=== PATIENT | female | born 1945 | race Caucasian/White ===

== ENCOUNTER 2019-06-15 17:27 | Observation (INO) | payer OTHER, BC ==
[2019-06-15] MEDS ORDERED: PANTOPRAZOLE 40 MG INJ ONE (17:48)
[2019-06-15] MEDS ORDERED: ONDANSETRON 4 MG/2 ML VIAL ONE ×2 (17:48→20:17)
[2019-06-15 18:17] LABS: Absolute Lymphocytes (CBC) 1.5 K/uL (0.7-4.9); Basophils % 0.5 % (0-1.3); Hematocrit 34.8 % (36.0-45.0); Lymphocytes % 12.4 % (15.3-44.8); MPV 9.2 fL (7.6-11.3); RBC Red Blood Cell Count 4.44 M/uL (3.86-4.86)
--- NOTE | 2019-06-15 18:17 | RAD REPORT ---
EXAM DESCRIPTION: RAD - Chest Single View - 06/15/2019 6:11 pm CLINICAL HISTORY: upper abdomen/epigastric pain Chest pain. COMPARISON: Chest Single View dated 06/10/2019; Chest Single View dated 03/13/2017; Chest Single View dated 01/20/2017; Chest Single View dated 10/24/2016 FINDINGS: Portable technique limits examination quality. The lungs are grossly clear. The heart is upper limit of normal in size. No displaced fractures. IMPRESSION: No acute intrathoracic process suspected.
[2019-06-15 18:18] LABS: Protime INR 0.95
[2019-06-15 18:35] LABS: ALT/SGPT 64 U/L (12-78); AST/SGOT 54 U/L (15-37); Albumin 3.4 g/dL (3.4-5.0); Alkaline Phosphatase 130 U/L (45-117); BUN Blood Urea Nitrogen 14 mg/dL (7-18); Bicarbonate 22 mmol/L (21-32); Bilirubin Direct 0.1 mg/dL (0-0.2); Bilirubin Total 0.3 mg/dL (0.2-1.0); Glucose Level 103 mg/dL (74-106); Lipase 167 U/L (73-393); Magnesium 2.2 mg/dL (1.8-2.4); NT PRO-BNP 84 pg/mL (<125); Potassium 4.2 mmol/L (3.5-5.1); Protein, Total 7.7 g/dL (6.4-8.2); Sodium Level 134 mmol/L (136-145); Troponin (Emerg Dept Use Only) < 0.02 ng/mL (0.0-0.045)
--- NOTE | 2019-06-15 19:50 | RAD REPORT ---
EXAM DESCRIPTION: CTAbdomen Pelvis W Contrast - 06/15/2019 7:37 pm CLINICAL HISTORY: Abdominal pain. ABD PAIN COMPARISON: Abdomen Pelvis W Contrast dated 01/20/2017 TECHNIQUE: Biphasic CT imaging of the abdomen and pelvis was performed with 100 ml non-ionic IV cont rast. All CT scans are performed using dose optimization technique as appropriate and may include automated exposure control or mA/KV adjustment according to patient size. FINDINGS: The lung bases are clear.Moderate axial hiatal hernia. Diffuse fatty liver is evident. The spleen, pancreas, adrenal glands and kidneys are within normal li mits. No bowel obstruction, free air, free fluid or abscess. The appendix is not identified as a discrete s tructure, however, no secondary findings of appendicitis are identified. Significant fecal retention in the colon. No evidence of significant lymphadenopathy. Moderate lumbar degenerative changes. IMPRESSION: Prominent fecal retention.
[2019-06-15] MEDS ORDERED: NA CHLORIDE 0.9% 500 ML ONE (20:12)
[2019-06-15] MEDS ORDERED: MAGNESIUM CITRATE 300 ML BOT ONE (20:53)
[2019-06-15] MEDS ORDERED: PROMETHAZINE 25 MG/ML VIAL ONE (21:03)
--- NOTE | 2019-06-15 21:46 | EDPHYS ---
Physician Documentation [facility] Name: Linda Lorenzana Age: 73 yrs Sex: Female : 1945 Arrival Date: 06/15/2019 Time: 17:33 Bed 8 Private MD: ED Physician Omer Morrison HPI: 06/15 17:50 This 73 yrs old Female presents to ER via EMS with complaints of Abdominal cp Pain. 17:50 The patient presents with abdominal pain in the epigastric area, in the upper abdomen. cp 17:50 Onset: The symptoms/episode began/occurred yesterday. cp 17:50 The symptoms radiate to chest. Associated signs and symptoms: Pertinent positives: cp nausea and vomiting, anorexia, constipation, Pertinent negatives: blood in stools, diarrhea, fever, headache, vomiting blood. Severity of pain: in the emergency department the pain is unchanged despite home interventions. Historical: - Allergies: 17:36 Bactrim; aj1 17:36 Levaquin; aj1 17:36 PENICILLINS; aj1 17:36 Sulfa (Sulfonamide Antibiotics); aj1 - Home Meds: 17:36 Diovan 320 mg Oral tab 1 tab once daily [Active]; hydrocodone-acetaminophen 7.5-325 mg aj1 Oral tab [Active]; Phenergan Oral 25 mg every 8 hours [Active]; Premarin 0.3 mg Oral tab 1 tab once daily [Active]; Prevacid 30 mg Oral cpDR [Active]; promethagen supository-25 mg [Active]; Protonix 40 mg Oral TbEC 1 tab once daily [Active]; Vesicare 10 mg Oral tab 1 tab once daily [Active]; Zofran (as hydrochloride) 4 mg Oral tab 1 tabs [Active]; - PMHx: 17:36 Anxiety; Hypertension; IBM; Inclusion Body Myositis; muscular degeneration; Ulcers; aj1 - Immunization history:: Flu vaccine is not up to date. - Social history:: Smoking status: Patient/guardian denies using tobacco. - Ebola Screening: : Patient denies travel to an Ebola-affected area in the 21 days before illness onset. ROS: 17:55 Constitutional: Positive for poor PO intake, Negative for body aches, chills, fever. cp 17:55 Eyes: Negative for injury, pain, redness, and discharge. cp 17:55 ENT: Negative for drainage from ear(s), ear pain, sore throat, difficulty swallowing, difficulty handling secretions. 17:55 Cardiovascular: Positive for chest pain, Negative for palpitations. 17:55 Respiratory: Negative for cough, shortness of breath, wheezing. 17:55 Abdomen/GI: Positive for abdominal pain, nausea and vomiting, constipation, anorexia, Negative for diarrhea, dysphagia, black/tarry stool, rectal bleeding. 17:55 Back: Negative for radiated pain. 17:55 : Negative for urinary symptoms. 17:55 Neuro: Negative for altered mental status, headache, syncope, weakness. 17:55 All other systems are negative. Exam: 18:02 Constitutional: The patient appears in no acute distress, alert, awake, cp non-diaphoretic, non-toxic, well developed, well nourished, uncomfortable. 18:02 Head/Face: Normocephalic, atraumatic. cp 18:02 Eyes: Periorbital structures: appear normal, Conjunctiva: normal, no exudate, no injection, Sclera: no appreciated abnormality, Lids and lashes: appear normal, bilaterally. 18:02 ENT: External ear(s): are unremarkable, Nose: is normal, Mouth: Lips: moist, Oral mucosa: dry, Posterior pharynx: is normal, airway is patent, no erythema, no exudate. 18:02 Neck: ROM/movement: is normal, is supple, without pain, no range of motions limitations, no nuchal rigidity. 18:02 Chest/axilla: Inspection: normal, Palpation: is normal, no crepitus, no tenderness. 18:02 Cardiovascular: Rate: tachycardic, Rhythm: regular, Edema: is not appreciated, JVD: is not appreciated. 18:02 Respiratory: the patient does not display signs of respiratory distress, Respirations: normal, no use of accessory muscles, no retractions, no splinting, no tachypnea, Breath sounds: are clear throughout, no decreased breath sounds, no stridor, no wheezing. 18:02 Abdomen/GI: Inspection: abdomen appears normal, Bowel sounds: active, all quadrants, Palpation: soft, in all quadrants, mild abdominal tenderness, in the epigastric area and left upper quadrant, rebound tenderness, is not appreciated, involuntary guarding, is not appreciated. 18:02 Back: CVA tenderness, is absent. 18:02 Neuro: Orientation: to person, place \T\ time. Mentation: is normal, Motor: moves all fours, Sensation: no obvious gross deficits. 19:15 ECG was reviewed by the Attending Physician. cp 22:00 ECG was reviewed by the Attending Physician. cp Vital Signs: 17:36 BP 150 / 67; Pulse 120; Resp 18; Temp 98.3; Pulse Ox 99% on R/A; Height 5 ft. 7 in. aj1 (170.18 cm) (R); Pain 5/10; 20:15 BP 150 / 69; Pulse 104; Resp 20; Pulse Ox 98% on R/A; mt 20:32 BP 158 / 77; Pulse 98; Resp 18; Pulse Ox 100% ; ea 21:00 BP 140 / 68; Pulse 98; Resp 18; Pulse Ox 99% ; ea 23:15 BP 145 / 70; Pulse 100; Resp 18; Temp 98; Pulse Ox 97% ; ea MDM: 17:40 Patient medically screened. cp 18:00 Differential diagnosis: bowel obstruction, cholecystitis, Cholelithiasis, gastritis, cp gastroesophageal reflux disease, non-specific abd pain, pancreatitis, Peptic Ulcer Disease, Perf. Duodenal Ulcer, Perf. Gastric Ulcer. 20:20 Data reviewed: vital signs, nurses notes, old medical records, lab test result(s), EKG, cp radiologic studies, CT scan, I have discussed the patient's presentation/case with the attending Emergency Department Physician;. 20:20 Response to treatment: the patient's symptoms have mildly improved after treatment. cp 20:30 Physician consultation: Romulo Mulligan MD was called at 20:31, left message on voicemail.cp 21:02 Physician consultation: Romulo Mulligan MD was called at 21:03, left message on voicemail.cp 21:41 ED course: VSS. Patient continues to have nausea and is intolerant of po liquids. Nurse cp observed patient vomit after attempting to drink magnesium citrate. Will admit for intractable vomiting to DR Mulligan and consult DR Denis. 21:55 Physician consultation: Romulo Mulligan MD was contacted at 21:50, regarding admission, cp to the telemetry unit. would like consultation with Dr. Denis for evaluation if available. 06/15 17:43 Order name: Basic Metabolic Panel; Complete Time: 18:48 cp 06/15 19:52 Interpretation: Normal except: NA 134; CRE 0.36. cp 06/15 17:43 Order name: CBC with Diff; Complete Time: 18:48 cp 06/15 19:53 Interpretation: Normal except: WBC 11.8; HGB 11.1; HCT 34.8; MCV 78.2; MCH 25.1; PLT cp 535; RDW 19.3; MONY% 78.9; LYM% 12.4; NEUT A 9.3. 06/15 17:43 Order name: LFT's; Complete Time: 18:48 cp 06/15 19:53 Interpretation: Normal except: AST 54; ALK 130; GLOB 4.3; A/G 0.8. cp 06/15 17:43 Order name: Magnesium; Complete Time: 18:48 cp 06/15 17:43 Order name: NT PRO-BNP; Complete Time: 18:48 cp 06/15 17:43 Order name: PT-INR; Complete Time: 18:48 cp 06/15 17:43 Order name: Troponin (emerg Dept Use Only); Complete Time: 18:48 cp 06/15 17:43 Order name: XRAY Chest (1 view); Complete Time: 18:48 cp 06/15 17:43 Order name: Lipase; Complete Time: 18:48 cp 06/15 22:48 Order name: Basic Metabolic Panel [facility] 06/15 22:48 Order name: Basic Metabolic Panel [facility] 06/15 22:48 Order name: Lipase [facility] 06/15 22:48 Order name: Lipase [facility] 06/15 22:49 Order name: Troponin I [facility] 06/15 17:43 Order name: EKG; Complete Time: 17:45 cp 06/15 17:43 Order name: Cardiac monitoring; Complete Time: 17:46 cp 06/15 17:43 Order name: EKG - Nurse/Tech; Complete Time: 19:43 cp 06/15 18:50 Order name: CT Abd/Pelvis - IV Contrast Only: upper abdomen/epigastric pain; Complete cp Time: 19:52 06/15 21:41 Order name: EKG; Complete Time: 21:41 cp 06/15 22:49 Order name: CONS Physician Consult [facility] 06/15 22:49 Order name: NPO [facility] 06/15 22:49 Order name: Abdomen Exam Limited [facility] 06/15 17:43 Order name: IV Saline Lock; Complete Time: 17:59 cp 06/15 17:43 Order name: Labs collected and sent; Complete Time: 17:59 cp 06/15 17:43 Order name: O2 Per Protocol; Complete Time: 17:46 cp 06/15 17:43 Order name: O2 Sat Monitoring; Complete Time: 17:46 cp 06/15 20:32 Order name: Misc. Order: soap markus enema; Complete Time: 23:19 cp 06/15 21:41 Order name: EKG - Nurse/Tech; Complete Time: 22:43 cp EC:15 Rate is 106 beats/min. Rhythm is regular. NJ interval is normal. QRS interval is cp normal. QT interval is normal. T waves are Inverted in leads aVL, aVR. Interpreted by me. Reviewed by me. 22:00 Rate is 116 beats/min. Rhythm is regular. NJ interval is normal. QRS interval is cp normal. QT interval is normal. T waves are Inverted in leads aVL, aVR. Interpreted by me. Reviewed by me. Administered Medications: 17:59 Drug: Zofran 4 mg Route: IVP; Site: right antecubital; aj1 19:00 Follow up: Response: No adverse reaction ea 18:00 Drug: ProTONIX 40 mg Route: IVP; Site: right antecubital; aj1 19:00 Follow up: Response: No adverse reaction ea 20:21 Drug: NS 0.9% 500 ml Route: IV; Rate: 500 ml/hr; Site: right antecubital; ea 22:43 Follow up: Response: No adverse reaction; IV Status: Completed infusion; IV Intake: ea 500ml 20:32 Drug: Zofran 4 mg Route: IVP; Site: right antecubital; ea 21:00 Follow up: Response: No adverse reaction ea 21:15 Drug: Phenergan 25 mg Route: IVP; Site: right antecubital; ea 22:43 Follow up: Response: No adverse reaction ea 23:18 Drug: morphine 2 mg Route: IVP; Site: right antecubital; ea 23:18 Follow up: Response: RASS: Alert and Calm (0) ea 23:30 Follow up: Response: No adverse reaction; RASS: Alert and Calm (0) ea 23:19 Not Given (Other Intervention Used): Magnesium Citrate Liquid 300 ml PO once ea Disposition: 06/16 07:11 Co-signature as Attending Physician, Omer Morrison MD I agree with the assessment and [facility] plan of care. Disposition: 06/15/19 21:44 Hospitalization ordered by Romulo Mulligan for Observation. Preliminary diagnosis are Nausea and vomiting - intractable, Epigastric pain, Chest pain, unspecified. - Bed requested for Telemetry/MedSurg (observation). - Status is Observation. ea - Condition is Stable. - Problem is new. - Symptoms have improved. UTI on Admission? No Signatures: Dispatcher [employer] EDRachell Fisher RN RN ajIliana Valdez RN Omer Gay MD MD cha Page, Corey, PA PA cp Antunez, Elena, RN RN ea Corrections: (The following items were deleted from the chart) 06/15 22:54 21:44 Hospitalization Ordered by Romulo Mulligan MD for Observation. Preliminary diagnosis is Nausea and vomiting - intractable; Epigastric pain; Chest pain, unspecified. Bed requested for Telemetry/MedSurg (observation). Status is Observation. Condition is Stable. Problem is new. Symptoms have improved. UTI on Admission? No. cp 23:38 22:54 06/15/2019 21:44 Hospitalization Ordered by Romulo Mulligan MD for Observation. ea Preliminary diagnosis is Nausea and vomiting - intractable; Epigastric pain; Chest pain, unspecified. Bed requested for Telemetry/MedSurg (observation). Status is Observation. Condition is Stable. Problem is new. Symptoms have improved. UTI on Admission? No. mw
--- NOTE | 2019-06-15 21:46 | ER ---
Nurse's Notes [facility] Name: Linda Lorenzana Age: 73 yrs Sex: Female : 1945 Arrival Date: 06/15/2019 Time: 17:33 Bed 8 Private MD: Diagnosis: Nausea and vomiting-intractable;Epigastric pain;Chest pain, unspecified Presentation: 06/15 17:33 Presenting complaint: Patient states: RUQ, LUQ, epigastric pain, and vomiting that aj1 started yesterday. Patient reports that she was recently admitted to the hospital for the some type of complaint and was discharged on Saturday. Denies fever. Transition of care: patient was not received from another setting of care. Onset of symptoms was June 13, 2019. Risk Assessment: Do you want to hurt yourself or someone else? Patient reports no desire to harm self or others. Initial Sepsis Screen: Does the patient meet any 2 criteria? HR > 90 bpm. No. Patient's initial sepsis screen is negative. Does the patient have a suspected source of infection? Yes: Acute abdominal pain. Care prior to arrival: None. 17:33 Method Of Arrival: EMS: [facility] aj 17:33 Acuity: DELFINO 2 aj1 Triage Assessment: 17:36 General: Appears uncomfortable, Behavior is calm, cooperative, appropriate for age. aj1 Pain: Complains of pain in epigastric area, right upper quadrant and left upper quadrant Pain does not radiate. Pain currently is 6 out of 10 on a pain scale. Neuro: GI: Reports upper abdominal pain, nausea, vomiting. Historical: - Allergies: 17:36 Bactrim; aj1 17:36 Levaquin; aj1 17:36 PENICILLINS; aj1 17:36 Sulfa (Sulfonamide Antibiotics); aj1 - Home Meds: 17:36 Diovan 320 mg Oral tab 1 tab once daily [Active]; hydrocodone-acetaminophen 7.5-325 mg aj1 Oral tab [Active]; Phenergan Oral 25 mg every 8 hours [Active]; Premarin 0.3 mg Oral tab 1 tab once daily [Active]; Prevacid 30 mg Oral cpDR [Active]; promethagen supository-25 mg [Active]; Protonix 40 mg Oral TbEC 1 tab once daily [Active]; Vesicare 10 mg Oral tab 1 tab once daily [Active]; Zofran (as hydrochloride) 4 mg Oral tab 1 tabs [Active]; - PMHx: 17:36 Anxiety; Hypertension; IBM; Inclusion Body Myositis; muscular degeneration; Ulcers; aj1 - Immunization history:: Flu vaccine is not up to date. - Social history:: Smoking status: Patient/guardian denies using tobacco. - Ebola Screening: : Patient denies travel to an Ebola-affected area in the 21 days before illness onset. Screenin:44 Abuse screen: Denies threats or abuse. Denies injuries from another. Nutritional aj1 screening: No deficits noted. Tuberculosis screening: No symptoms or risk factors identified. 23:15 Fall Risk Ambulatory Aid- None/Bed Rest/Nurse Assist (0 pts). ak1 Assessment: 17:44 General: Appears uncomfortable, Behavior is calm, cooperative, appropriate for age. aj1 Pain: Complains of pain in left upper quadrant and right upper quadrant and epigastric area Pain does not radiate. Pain currently is 5 out of 10 on a pain scale. Pain began 2-3 days ago. Is intermittent. Neuro: Level of Consciousness is awake, alert, obeys commands, Oriented to person, place, time, situation. Cardiovascular: Patient's skin is warm and dry. Respiratory: Airway is patent Respiratory effort is even, unlabored, Respiratory pattern is regular, symmetrical. GI: Abdomen is round distended, Bowel sounds present X 4 quads. Abd is soft X 4 quads Abdomen is tender to palpation X 4 quads. Reports upper abdominal pain, nausea, vomiting, Patient currently denies diarrhea. : No signs and/or symptoms were reported regarding the genitourinary system. EENT: No signs and/or symptoms were reported regarding the EENT system. Derm: No signs and/or symptoms reported regarding the dermatologic system. Skin is pink, warm \T\ dry. normal. Musculoskeletal: Range of motion: WNL for patient, patient has history of muscular degeneration and is bed bound. 19:00 General: Appears uncomfortable, Behavior is calm, cooperative, appropriate for age. ea Pain: Complains of pain in left upper quadrant and right upper quadrant. Neuro: Level of Consciousness is awake, alert, obeys commands, Oriented to person, place, time, situation. Cardiovascular: Patient's skin is warm and dry. Respiratory: Airway is patent Respiratory effort is even, unlabored, Respiratory pattern is regular, symmetrical. Derm: Skin is pink, warm \T\ dry. 20:35 Reassessment: Dione Dai Daughter [phone]. ea 23:35 Reassessment: Patient and/or family updated on plan of care and expected duration. Pain ea level reassessed. Patient is alert, oriented x 3, equal unlabored respirations, skin warm/dry/pink. Pt admitted to hospital, pt taken via stretcher per tech. Respirations even and unlabored, chest expansions even and symmetrical. No s/s of pain or discomfort noted at this time. Vital Signs: 17:36 BP 150 / 67; Pulse 120; Resp 18; Temp 98.3; Pulse Ox 99% on R/A; Height 5 ft. 7 in. aj1 (170.18 cm) (R); Pain 5/10; 20:15 BP 150 / 69; Pulse 104; Resp 20; Pulse Ox 98% on R/A; mt 20:32 BP 158 / 77; Pulse 98; Resp 18; Pulse Ox 100% ; ea 21:00 BP 140 / 68; Pulse 98; Resp 18; Pulse Ox 99% ; ea 23:15 BP 145 / 70; Pulse 100; Resp 18; Temp 98; Pulse Ox 97% ; ea ED Course: 17:33 Patient arrived in ED. aj1 17:35 Triage completed. aj1 17:36 Arm band placed on. aj1 17:37 Omer White PA is PHCP. cp 17:37 Richard Fontanez MD is Attending Physician. cp 17:40 Rachell Palencia, RN is Primary Nurse. aj1 17:44 Patient has correct armband on for positive identification. Bed in low position. Call aj1 light in reach. Side rails up X 1. 17:44 No provider procedures requiring assistance completed. aj1 17:55 Inserted saline lock: 20 gauge in right antecubital area, using aseptic technique. aj1 Blood collected. 18:11 XRAY Chest (1 view) In Process Unspecified. EDMS 19:00 Radiology exam delayed due to patient getting changed at this time. nj 19:[address] via stretcher. sw 19:33 CT completed. Patient tolerated procedure well. Patient moved back from CT. sw 19:37 CT Abd/Pelvis - IV Contrast Only: upper abdomen/epigastric pain In Process Unspecified. EDMS 21:29 Omer Morrison MD is Attending Physician. cp 21:43 Romulo Mulligan MD is Hospitalizing Provider. cp 23:15 Patient admitted, IV remains in place. ak1 Administered Medications: 17:59 Drug: Zofran 4 mg Route: IVP; Site: right antecubital; aj1 19:00 Follow up: Response: No adverse reaction ea 18:00 Drug: ProTONIX 40 mg Route: IVP; Site: right antecubital; aj1 19:00 Follow up: Response: No adverse reaction ea 20:21 Drug: NS 0.9% 500 ml Route: IV; Rate: 500 ml/hr; Site: right antecubital; ea 22:43 Follow up: Response: No adverse reaction; IV Status: Completed infusion; IV Intake: ea 500ml 20:32 Drug: Zofran 4 mg Route: IVP; Site: right antecubital; ea 21:00 Follow up: Response: No adverse reaction ea 21:15 Drug: Phenergan 25 mg Route: IVP; Site: right antecubital; ea 22:43 Follow up: Response: No adverse reaction ea 23:18 Drug: morphine 2 mg Route: IVP; Site: right antecubital; ea 23:18 Follow up: Response: RASS: Alert and Calm (0) ea 23:30 Follow up: Response: No adverse reaction; RASS: Alert and Calm (0) ea 23:19 Not Given (Other Intervention Used): Magnesium Citrate Liquid 300 ml PO once ea Intake: 22:43 IV: 500ml; Total: 500ml. ea Outcome: 21:44 Decision to Hospitalize by Provider. cp 23:15 Admitted to Med/surg accompanied by tech, via stretcher, room 406, with chart, Report ak1 called to Sirena 23:15 Condition: stable 23:15 Instructed on the need for admit. 23:38 Patient left the ED. ea Signatures: Dispatcher [employer] EDMS Rachell Palencia RN RN [email or web address] Cecelia Lam Amber, RN RN ak1 Chasidy Castellanos Corey, PA PA cp Bryan, Elpidio Blount, [facility] Delores Pinto RN RN ea Corrections: (The following items were deleted from the chart) 19:00 18:54 Patient moved to [place] sj nj
[2019-06-15] MEDS ORDERED: ONDANSETRON 4 MG/2 ML VIAL IV PRN (22:42)
[2019-06-15] MEDS ORDERED: MORPHINE 2 MG/ML SYR IM PRN (22:44)
[2019-06-15] MEDS ORDERED: ASPIRIN 600 MG/SUPP PR ONE (22:50)
[2019-06-16] MEDS: D5 0.45 NS 1,000 ML IV SCH ×2 (00:30→12:20)
[2019-06-16 01:44] VITALS: BMI 29.7
[2019-06-16] MEDS: PROMETHAZINE 25 MG/ML VIAL IV PRN ×2 (02:47→10:44)
[2019-06-16] MEDS: MORPHINE 2 MG/ML SYR IV PRN (02:50)
[2019-06-16 04:30] LABS: Absolute Lymphocytes (CBC) 1.8 K/uL (0.7-4.9); Basophils % 0.4 % (0-1.3); Hematocrit 31.8 % (36.0-45.0); MPV 9.4 fL (7.6-11.3); RBC Red Blood Cell Count 4.01 M/uL (3.86-4.86)
[2019-06-16 04:53] LABS: ALT/SGPT 52 U/L (12-78); AST/SGOT 44 U/L (15-37); Alkaline Phosphatase 113 U/L (45-117); BUN Blood Urea Nitrogen 12 mg/dL (7-18); Bicarbonate 23 mmol/L (21-32); Bilirubin Direct < 0.1 mg/dL (0-0.2); Bilirubin Total 0.2 mg/dL (0.2-1.0); Glucose Level 120 mg/dL (74-106); Lipase 86 U/L (73-393); Potassium 3.7 mmol/L (3.5-5.1); Protein, Total 6.7 g/dL (6.4-8.2); Sodium Level 134 mmol/L (136-145)
--- NOTE | 2019-06-16 07:26 | EKG ---
Test Date: 2019-06-15 Test Time: 19:11:53 Clinical Implementation Specialist: MEASUREMENT RESULTS: Intervals: Rate: 106 NE: 150 QRSD: 80 QT: 332 QTc: 441 [place]: P: 96 NE: 150 QRS: 251 T: 78 INTERPRETIVE STATEMENTS: Sinus tachycardia Right superior axis deviation Anteroseptal infarct, age undetermined Pulmonary disease pattern Abnormal ECG Compared to ECG 06/11/2019 09:16:58 Right superior axis now present Left-axis deviation no longer present Myocardial infarct finding still present Electronically Signed On 06-16-19 07:26:00 CDT by Mayank Orosco
--- NOTE | 2019-06-16 07:26 | EKG ---
Test Date: 2019-06-15 Test Time: 21:51:54 Rn Intake: WALE MEASUREMENT RESULTS: Intervals: Rate: 119 CT: 150 QRSD: 80 QT: 310 QTc: 436 [place]: P: 82 CT: 150 QRS: -65 T: 100 INTERPRETIVE STATEMENTS: Sinus tachycardia Left axis deviation Inferior infarct, age undetermined Anteroseptal infarct, age undetermined Abnormal ECG Compared to ECG 06/15/2019 19:11:53 Left-axis deviation now present Right superior axis no longer present Myocardial infarct finding still present Electronically Signed On 06-16-19 07:25:23 CDT by Mayank Orosco
--- NOTE | 2019-06-16 09:19 | RAD REPORT ---
EXAM DESCRIPTION: US - Abdomen Exam Limited - 06/16/2019 9:10 am CLINICAL HISTORY: epigastric/upper abdomen pain COMPARISON: Abdomen Exam Limited dated 03/13/2017 FINDINGS: The gallbladder demonstrates no gallstones. No pericholecystic fluid or gallbladder wall t hickening. The common bile duct is normal measuring 2 mm. The liver demonstrates no findings of intrahepatic biliary dilatation. IMPRESSION: Unremarkable examination.
[2019-06-16] MEDS: FLEET ENEMA ADULT PR SCH ×2 (10:11→20:07)
[2019-06-16] MEDS ORDERED: LACTULOSE 20 GM/30 ML UCUP PO PRN (10:12)
--- NOTE | 2019-06-16 12:21 | EKG ---
Test Date: 2019-06-15 Test Time: 21:52:52 Long Distance Operator: WALE MEASUREMENT RESULTS: Intervals: Rate: 116 AL: 150 QRSD: 76 QT: 312 QTc: 433 [place]: P: 86 AL: 150 QRS: -65 T: 104 INTERPRETIVE STATEMENTS: Sinus tachycardia Left axis deviation Inferior infarct, age undetermined Anteroseptal infarct, age undetermined Abnormal ECG Compared to ECG 06/15/2019 21:51:54 No significant changes Electronically Signed On 06-16-19 12:20:27 CDT by Mayank Orosco
--- NOTE | 2019-06-16 20:59 | HP ---
Date of Admission: 06/15/2019 History Of Present Illness: The patient is a 73-year-old female, who was recently discharged after b eing evaluated for chest pain, just comes back with a complaint of epigastric abdominal pain along wi th nausea and vomiting, which is intractable. She could not keep even fluids in her stomach. We rosetta t ahead and admitted her back into the hospital. The patient has had no fever, no chills, no diarrhe a or constipation. She voiced no other complaints. Review of Systems: Gastrointestinal: As above. Cardiovascular: No complaints. Genitourinary: No complaints. Skeletomuscular: No complaints. Respiratory: No complaints. Neurological: No complaints. Past Medical History: Kindly look at her just recent admit and discharge notes. Social History: Kindly look at her just recent admit and discharge notes. Family History: Kindly look at her just recent admit and discharge notes. Medications: Kindly look at her just recent admit and discharge notes. Allergies: KINDLY LOOK AT HER JUST RECENT ADMIT AND DISCHARGE NOTES. Physical Examination: Vital Signs: Blood pressure 130/60, pulse 90, temperature 97.4. Heart: Regular rate and rhythm. Chest: Clear to auscultation. Abdomen: Soft, nontender. No rigidity. No rebound. Bowel sounds are normoactive. Extremities: No edema. No cyanosis. Peripheral pulses are felt. Neurologic: Alert, oriented, nonfocal. Grossly intact. Diagnostic Data: Abdominal ultrasound, no acute pathology. Abdominal and pelvic CT, had some fecal retention. Chest x-ray, no acute pathology. EKG; sinus tachycardia, rate 119, left axis deviation, inferior Q-waves and anteroseptal Q-waves. CBC; white cell count 8.4, hemoglobin 10.5, hematocrit 31.8, platelets 455. Chemistry; sodium 134, B UN 12, creatinine 0.31, lipase 86. Assessment/plan: Intractable nausea and vomiting with epigastric abdominal pain. The patient is mellisa leela readmitted. I have asked Dr. Denis, Gastroenterology, to see her. Meanwhile, we will put her on IV fluids and Phenergan IV. We will continue home medicines for chronic medical illnesses. Look orders for details. MFS/MODL Voice ID: [id number]
[2019-06-17] MEDS: D5 0.45 NS 1,000 ML IV SCH ×2 (01:02→01:40)
[2019-06-17] MEDS: MORPHINE 2 MG/ML SYR IV PRN ×2 (01:02→06:08)
[2019-06-17] MEDS ORDERED: PANTOPRAZOLE 40MG TABLET PO SCH (06:30)
[2019-06-17 08:21] VITALS: O2SAT 95
[2019-06-17] MEDS ORDERED: PARoxetine HCl 10 MG TAB PO SCH (09:00)
[2019-06-17] MEDS ORDERED: VALSARTAN 160 MG TAB PO SCH (09:00)
[2019-06-17] MEDS ORDERED: AMLODIPINE 10 MG TAB PO SCH (09:00)
[2019-06-17] MEDS: FLEET ENEMA ADULT PR SCH (09:00)
[2019-06-17 12:12] VITALS: BP 139/69; TEMP 96.8
== END 2019-06-17 13:29 | disposition home or self-care (01) ==
LOC: ER 17:27 → ERHOLD 22:56 → 4TH 23:20
PROVIDERS: ADMIT Internal Medicine; ATTEND Internal Medicine
DX: R10.13 Epigastric pain (principal); R11.2 Nausea with vomiting, unspecified; Z88.0 Allergy status to penicillin; Z88.6 Allergy status to analgesic agent; Z88.1 Allergy status to other antibiotic agents
CPT/HCPCS: 96361; 93005 ×3; 85025 ×2; 80048 ×2; 36415; 83735; 85610; 80076 ×2; 84484 ×3; 83690 ×2; 83880; 74177; 71045; 76705; 96375; 96374; 99285; Q9967; J2550 ×3; C9113; J2270 ×4; J2405 ×2; G0378 ×2

== ENCOUNTER 2021-11-28 15:56 | Inpatient (IN) | payer OTHER ==
[2021-11-28] MEDS ORDERED: NA CHLORIDE 0.9% 1,000 ML ONE (16:21)
[2021-11-28 16:29] LABS: Absolute Lymphocytes (CBC) 0.4 K/uL (0.7-4.9); Hematocrit 39.3 % (36.0-45.0); Lymphocytes % 2.6 % (15.3-44.8); MPV 9.5 fL (7.6-11.3)
[2021-11-28 16:32] LABS: Protime INR 0.97
[2021-11-28 16:37] LABS: Urine Blood Trace-intact (Negative); Urine Glucose Negative (Negative); Urine Protein Trace (Negative)
[2021-11-28 16:47] LABS: ALT/SGPT 21 U/L (12-78); AST/SGOT 18 U/L (15-37); Albumin 2.5 g/dL (3.4-5.0); Alkaline Phosphatase 99 U/L (45-117); BUN Blood Urea Nitrogen 8 mg/dL (7-18); Bicarbonate 28 mmol/L (21-32); Bilirubin Direct 0.1 mg/dL (0-0.2); Bilirubin Total 0.3 mg/dL (0.2-1.0); Glucose Level 183 mg/dL (74-106); Protein, Total 7.1 g/dL (6.4-8.2); Sodium Level 130 mmol/L (136-145)
[2021-11-28] MEDS ORDERED: METHYLPREDNISOLONE 125 MG INJ ONE (16:49)
[2021-11-28 16:51] LABS: Potassium 2.4 mmol/L (3.5-5.1)
[2021-11-28 17:06] LABS: Urine Bacteria 20-50 /HPF (<20); Urine Mucus 1+ /HPF (NONE SEEN); Urine RBC <5 /HPF (NONE SEEN)
[2021-11-28 17:42] LABS: SARS-COV-2 RT PCR POSITIVE (NEGATIVE)
--- NOTE | 2021-11-28 17:49 | RAD REPORT ---
EXAM DESCRIPTION: RAD - Chest Single View - 11/28/2021 5:04 pm CLINICAL HISTORY: Cough;Dyspnea;Fever Chest pain. COMPARISON: Chest Single View dated 06/15/2019; Chest Single View dated 06/10/2019; Chest Single View dated 03/13/2017; Chest Single View dated 01/20/2017 FINDINGS: Portable technique limits examination quality. Mild bilateral interstitial lung opacities are present, greater on the right. Most likely, this repre sents a viral infection. The heart is upper limit of normal in size. No displaced fractures.
[2021-11-28] MEDS ORDERED: NA CHLORIDE 0.9% 100 ML IV ONE (18:09)
[2021-11-28] MEDS ORDERED: CEFTRIAXONE 1000 MG/VIAL ONE (18:09)
--- NOTE | 2021-11-28 18:11 | ER ---
Nurse's Notes [facility] Name: Linda Lorenzana Age: 76 yrs Sex: Female : 1945 Arrival Date: 11/28/2021 Time: 15:56 Bed 3 Private MD: Diagnosis: Pneumonia due to SARS-associated coronavirus;UTI/ Urinary tract infection, site not specified;Altered mental status, unspecified;Hypokalemia Presentation: 11/28 15:56 Chief complaint: EMS states: outpatient XRAY shoed pneumonia today. half-way ss reports AMS that began today as well. COVID +. Coronavirus screen: Client presents with at least one sign or symptom that may indicate coronavirus-19. Initial Sepsis Screen: Does the patient meet any 2 criteria? Yes Does the patient have a suspected source of infection? Yes: Productive cough/pneumonia. Risk Assessment: Do you want to hurt yourself or someone else? Unable to obtain. Onset of symptoms is unknown. 15:56 Method Of Arrival: EMS: [facility] 15:56 Acuity: DELFINO 2 ss 16:13 Ebola Screen: Patient negative for fever greater than or equal to 101.5 degrees jg9 Fahrenheit, and additional compatible Ebola Virus Disease symptoms Patient denies exposure to infectious person. Patient denies travel to an Ebola-affected area in the 21 days before illness onset. Triage Assessment: 16:10 General: Appears in no apparent distress. Behavior is calm. Pain: Unable to use pain jg9 scale. responds to verbal stimuli with moaning/groaning. Neuro: Level of Consciousness is lethargic, awake to verbal stimuli. Historical: - Allergies: 16:00 Bactrim; ss 16:00 Levaquin; ss 16:00 PENICILLINS; ss 16:00 Sulfa (Sulfonamide Antibiotics); ss - PMHx: 16:00 Anxiety; Hypertension; IBM; Inclusion Body Myositis; muscular degeneration; Ulcers; ss - Immunization history:: unknown. - Social history:: Smoking status: unknown. - Family history:: not pertinent. - Hospitalizations: : No recent hospitalization is reported. - Unable to obtain history due to: altered mental status. Screenin:11 Abuse screen: Denies threats or abuse. Denies injuries from another. Nutritional jg9 screening: family reports change in eating habits suddenly. Tuberculosis screening: No symptoms or risk factors identified. Fall Risk Secondary diagnosis (15 points) ams. IV access (20 points). Mental Status- Overestimates/Forgets Limitations (15 pts.). Sepsis Screening:. Assessment: 17:00 Reassessment: No changes from previously documented assessment. Patient and/or family jd3 updated on plan of care and expected duration. Pain level reassessed. pt crying after provider talking to pt at bedside about plan of care. verbal reassurance given. 18:38 Reassessment: No changes from previously documented assessment. Patient and/or family jd3 updated on plan of care and expected duration. Pain level reassessed. 20:07 General: Appears in no apparent distress. Neuro: Level of Consciousness is lethargic. 5 20:07 Cardiovascular: Capillary refill < 3 seconds Patient's skin is warm and dry. sm5 Respiratory: Airway is patent Trachea midline Respiratory effort is even, unlabored. : Cooper in place. 21:47 Reassessment: No changes from previously documented assessment. 5 21:50 Reassessment: No changes from previously documented assessment. 5 Vital Signs: 15:56 BP 145 / 84; Pulse 118; Resp 24; Pulse Ox 90% on R/A; ss 16:00 BP 144 / 79; Pulse 60; Resp 17 S; Temp 98.7(TE); Pulse Ox 94% on R/A; Weight 90.72 kg; jg9 Height 5 ft. 8 in. (172.72 cm); 17:00 BP 160 / 85; Pulse 108; Resp 19 S; Pulse Ox 100% on R/A; jg9 17:15 BP 162 / 82; Pulse 101; Resp 23 S; Pulse Ox 100% on R/A; jg9 17:30 BP 168 / 85; Pulse 104; Resp 20 S; Pulse Ox 100% on R/A; jg9 17:45 BP 160 / 72; Pulse 100; Resp 20; Pulse Ox 100% on R/A; jg9 18:00 BP 169 / 77; Pulse 105; Resp 20 S; Pulse Ox 100% on R/A; jg9 18:15 BP 161 / 88; Pulse 100; Resp 23 S; Pulse Ox 100% on R/A; jg9 21:50 BP 168 / 91; Pulse 102; Resp 22; Pulse Ox 100% ; sm5 16:00 Body Mass Index 30.41 (90.72 kg, 172.72 cm) j9 ED Course: 15:56 Patient arrived in ED. ss 16:00 Richard Fontanez MD is Attending Physician. rn 16:00 Triage completed. ss 16:01 Arm band placed on right wrist. ss 16:09 Elina Humphries, ELI is Primary Nurse. jg9 16:12 Maintain EMS IV. Site clean \T\ dry. Gauge \T\ site: 20g r wrist. Flushed right saline lock.jg 9 16:14 Patient has correct armband on for positive identification. Bed in low position. Call jg9 light in reach. Side rails up X 1. 17:00 Pt visited by daughter. jg9 17:05 Chest Single View XRAY In Process Unspecified. EDMS 17:20 Inserted saline lock: 22 gauge in right hand, using aseptic technique. jg9 17:30 Urine Culture Sent. jg9 18:02 Prince Roberto MD is Hospitalizing Provider. rn 21:51 No provider procedures requiring assistance completed. Patient admitted, IV remains in [address] Administered Medications: 16:34 Drug: NS 0.9% 1000 ml Route: IV; Rate: 1000 ml; Site: right wrist; j9 18:51 Follow up: IV Status: Completed infusion; IV Intake: 1000ml j9 17:24 Drug: SOLU-Medrol (methylPrednisoLONE) 125 mg Route: IVP; Site: right wrist; jg9 18:05 Follow up: Response: No adverse reaction j9 18:17 Drug: Rocephin (cefTRIAXone) 1 grams Route: IV; Rate: calculated rate; Site: right hand;jg9 18:50 Follow up: IV Status: Completed infusion; IV Intake: 100ml j9 21:43 Drug: Potassium Chloride 20 mEq Route: IV; Rate: calculated rate; Site: right hand; [facility] Intake: 18:50 IV: 100ml; Total: 100ml. j9 18:51 IV: 1000ml; Total: 1100ml. jg9 Outcome: 18:03 Decision to Hospitalize by Provider. rn 22:26 Patient left the ED. tw5 22:26 Admitted to Tele accompanied by tech, via stretcher, with chart. [facility] 22:26 Condition: stable 22:26 Instructed on the need for admit. Signatures: Dispatcher [employer] Richard Velázquez MD MD rn Smirch, Shelby, RN RN ss Davies, Jonathon, RN RN jd3 Wood, Tiffany 5 Quynh Fiore RN RN sm5 Elina Humphries RN RN jg9 Corrections: (The following items were deleted from the chart) 18:35 17:00 Reassessment: Patient appears in no apparent distress at this time. No changes ke1 from previously documented assessment. Patient and/or family updated on plan of care and expected duration. Pain level reassessed. jg9 21:49 20:07 Neuro: Level of Consciousness is sm5 sm5 21:50 21:48 Cardiovascular: Capillary refill < 3 seconds Patient's skin is warm and dry. sm5 sm5 21:50 21:48 Respiratory: Airway is patent Trachea midline Respiratory effort is even, sm5 unlabored, sm5 21:50 21:48 : Cooper in place sm5 sm5
--- NOTE | 2021-11-28 18:11 | EDPHYS ---
Physician Documentation [facility] Name: Linda Lorenzana Age: 76 yrs Sex: Female : 1945 Arrival Date: 11/28/2021 Time: 15:56 Bed 3 Private MD: ED Physician Richard Fontanez HPI: 11/28 16:47 This 76 yrs old Female presents to ER via EMS with complaints of Altered Mental Status. rn 16:47 The patient presents with decreased responsiveness. Onset: The symptoms/episode rn began/occurred at an unknown time. Possible causes: unknown. Associated signs and symptoms: Pertinent positives: confusion, Pertinent negatives: abdominal pain, vomiting. Current symptoms: In the emergency department the patient's symptoms are unchanged from the initial presentation. It is unknown whether or not the patient has had similar symptoms in the past. The patient has not recently seen a physician. EMS reports assisted noticed decreased level of consciousness, patient is Covid positive, unknown onset, estimate about a week, x-ray at assisted showed pneumonia. Oxygen saturation 90%.. Historical: - Allergies: 16:00 Bactrim; ss 16:00 Levaquin; ss 16:00 PENICILLINS; ss 16:00 Sulfa (Sulfonamide Antibiotics); ss - PMHx: 16:00 Anxiety; Hypertension; IBM; Inclusion Body Myositis; muscular degeneration; Ulcers; ss - Immunization history:: unknown. - Social history:: Smoking status: unknown. - Family history:: not pertinent. - Hospitalizations: : No recent hospitalization is reported. - Unable to obtain history due to: altered mental status. ROS: 16:47 Unable to obtain ROS due to altered mental status. rn Exam: 16:47 Constitutional: This is a well developed, well nourished patient who is somnolent but rn awakens to voice Head/Face: Normocephalic, atraumatic. Eyes: Periorbital areas with no swelling, redness, or edema. ENT: Dry mucous membranes, no stridor Cardiovascular: Tachycardic, regular. No pulse deficits. Respiratory: Mild tachypnea, diminished breath sounds bilaterally Abdomen/GI: Soft, non-tender Skin: Warm, dry MS/ Extremity: Pulses equal, no cyanosis. Neuro: Somnolent, awakens to voice, oriented to person but not place or time. Vital Signs: 15:56 BP 145 / 84; Pulse 118; Resp 24; Pulse Ox 90% on R/A; ss 16:00 BP 144 / 79; Pulse 60; Resp 17 S; Temp 98.7(TE); Pulse Ox 94% on R/A; Weight 90.72 kg; jg9 Height 5 ft. 8 in. (172.72 cm); 17:00 BP 160 / 85; Pulse 108; Resp 19 S; Pulse Ox 100% on R/A; jg9 17:15 BP 162 / 82; Pulse 101; Resp 23 S; Pulse Ox 100% on R/A; jg9 17:30 BP 168 / 85; Pulse 104; Resp 20 S; Pulse Ox 100% on R/A; jg9 17:45 BP 160 / 72; Pulse 100; Resp 20; Pulse Ox 100% on R/A; jg9 18:00 BP 169 / 77; Pulse 105; Resp 20 S; Pulse Ox 100% on R/A; jg9 18:15 BP 161 / 88; Pulse 100; Resp 23 S; Pulse Ox 100% on R/A; jg9 21:50 BP 168 / 91; Pulse 102; Resp 22; Pulse Ox 100% ; sm5 16:00 Body Mass Index 30.41 (90.72 kg, 172.72 cm) j9 MDM: 16:00 Patient medically screened. rn 16:05 ED course: EMS states told patient COVID +, code sepsis called, given COVID, will give rn individual boluses at a time with reeval and no abx indicated at this time for viral infection.. 17:59 Differential Diagnosis: electrolyte abnormality, pneumonia, sepsis, UTI, volume rn depletion. 18:00 Data reviewed: vital signs, nurses notes, lab test result(s), radiologic studies, plain rn films, and as a result, I will admit patient. Counseling: I had a detailed discussion with the patient and/or guardian regarding: the historical points, exam findings, and any diagnostic results supporting the discharge/admit diagnosis, lab results, radiology results, the need for further work-up and treatment in the hospital. 18:02 Response to treatment: the patient's symptoms have mildly improved after treatment, and rn as a result, I will admit patient. 11/28 16:05 Order name: Basic Metabolic Panel; Complete Time: 17:41 rn 11/28 16:05 Order name: Blood Culture Adult (2) rn 11/28 16:05 Order name: CBC with Diff rn 11/28 16:05 Order name: LFT's; Complete Time: 17:41 rn 11/28 16:05 Order name: Lactate; Complete Time: 17:41 rn 11/28 16:05 Order name: Procalcitonin; Complete Time: 17:41 rn 11/28 16:05 Order name: Protime (+inr); Complete Time: 17:41 rn 11/28 16:05 Order name: Ptt, Activated; Complete Time: 17:41 rn 11/28 16:05 Order name: Troponin HS; Complete Time: 17:41 rn 11/28 16:05 Order name: Urine Microscopic Only; Complete Time: 17:41 rn 11/28 16:05 Order name: COVID-19/FLU A+B (Document "Date of Onset" if Symptomatic) rn 11/28 17:05 Order name: Urine Dipstick-Ancillary; Complete Time: 17:41 EDAK 11/28 17:09 Order name: Urine Culture EDMS 11/28 19:11 Order name: CRP la1 11/28 16:05 Order name: Chest Single View XRAY rn 11/28 16:05 Order name: Cardiac monitoring; Complete Time: 16:17 rn 11/28 16:05 Order name: EKG - Nurse/Tech; Complete Time: 16:17 rn 11/28 16:05 Order name: IV Saline Lock - Large Bore; Complete Time: 16:17 rn 11/28 16:05 Order name: Labs collected and sent; Complete Time: 16:17 rn 11/28 16:05 Order name: O2 Sat Monitoring; Complete Time: 16:17 rn 11/28 16:05 Order name: Urine Dipstick-Ancillary (obtain specimen); Complete Time: 16:41 rn 11/28 19:41 Order name: Manual Differential EDMS Administered Medications: 16:34 Drug: NS 0.9% 1000 ml Route: IV; Rate: 1000 ml; Site: right wrist; jg9 18:51 Follow up: IV Status: Completed infusion; IV Intake: 1000ml jg9 17:24 Drug: SOLU-Medrol (methylPrednisoLONE) 125 mg Route: IVP; Site: right wrist; jg9 18:05 Follow up: Response: No adverse reaction jg9 18:17 Drug: Rocephin (cefTRIAXone) 1 grams Route: IV; Rate: calculated rate; Site: right hand;jg9 18:50 Follow up: IV Status: Completed infusion; IV Intake: 100ml jg9 21:43 Drug: Potassium Chloride 20 mEq Route: IV; Rate: calculated rate; Site: right hand; 5 Disposition Summary: 11/28/21 18:03 Hospitalization Ordered Hospitalization Status: Inpatient Admission rn Provider: Prince Pardeep rn Location: [facility] (Inpatient) rn Condition: Stable rn Problem: new rn Symptoms: have improved rn Bed/Room Type: Standard rn Room Assignment: 402(11/28/21 20:01) mw Diagnosis - Pneumonia due to SARS-associated coronavirus rn - UTI/ Urinary tract infection, site not specified rn - Altered mental status, unspecified rn - Hypokalemia rn Forms: - Medication Reconciliation Form rn - SBAR form rn Signatures: Dispatcher [employer] EDIliana Chaves RN RN Richard Montelongo MD MD rn Smirch, Shelby, RN RN Escobar Rm, STICK INSERTER-C STICK INSERTER-Cla1 Quynh Fiore RN RN sm5 Elina Humphries RN RN jg9 Corrections: (The following items were deleted from the chart) 16:41 16:05 Accucheck ordered. coreen jg9 20:01 18:03 rn zohreh
[2021-11-28 19:40] LABS: Blood Morphology Comment NOT SEEN (NOT SEEN); Platelet Estimate ADEQ
--- NOTE | 2021-11-28 21:04 | P.HP ---
Certification for Inpatient Patient admitted to: Inpatient With expected LOS: >2 Midnights Patient will require the following post-hospital care: None Practitioner: I am a practitioner with admitting privileges, knowledge of patient current condition, hospital course, and medical plan of care. Services: Services provided to patient in accordance with Admission requirements found in Title 42 Section 412.3 of the Code of Federal Regulations Patient History Date of Service: 11/28/21 Primary Care Provider: halfway doctor Reason for admission: UTI, Covid pneumonia History of Present Illness: 76-year-old female who is bedbound, from the residential with history of hypertension and inclusion body myositis presents emergency department for worsening mentation, fever. Patient was evaluated in the emergency department labs were significant for white blood cell count 13.7 with left shift sodium 130 potassium 2.4 chloride 93 glucose 183 urinalysis with 20-50 bacteria 5-10 white blood cell nitrite positive COVID positive. Patient tested positive for Covid on 11/23/2021. Patient saturating around 90% on room air currently on 2 L per nasal cannula saturating around 93 to 95%. CRP level pending. ED provider wishes to admit for UTI, hypokalemia, COVID-19 pneumonia. Chest x-ray demonstrated mild bilateral interstitial lung opacities. Allergies levofloxacin [From Levaquin] Allergy (Verified 03/13/17 18:21) Rash Penicillins Allergy (Verified 03/13/17 18:21) Rash Home Medications: Docusate Sodium 100 mg PO PRN 06/11/19 Estrogens,Conj [Premarin*] 0.3 mg PO DAILY 06/11/19 Metoclopramide HCl [Reglan] 10 mg PO DAILY 06/11/19 PARoxetine HCL [Paroxetine HCl] 20 mg PO DAILY 06/11/19 Ranitidine [Zantac*] 150 mg PO PRN PRN 06/11/19 Sennosides/Docusate Sodium [Senna-S Tablet] 50 mg PO PRN PRN 06/11/19 Sulfamethoxazole/Trimethoprim [Bactrim 400-80 mg Tablet] 1 tab PO DAILY 06/11/19 Amlodipine Besylate 10 mg PO DAILY #30 tablet 06/12/19 Esomeprazole Mag Trihydrate [Nexium] 40 mg PO DAILY #30 capsule. 06/12/19 Ferrous Sulfate 325 mg PO DAILY 06/16/19 Valsartan [Diovan] 320 mg PO DAILY 06/16/19 Esomeprazole Mag Trihydrate [Nexium] 40 mg PO DAILY #30 capsule. 06/17/19 - Past Medical/Surgical History Diabetic: No -: Inclusion body myocytis (degenerative muscle disease) -: HTN -: anxiety -: Hysterectomy -: tonsillectomy -: appendectomy -: A&P REPAIR Psychosocial/ Personal History: Patient is a resident of [facility] - Family History Father -: Heart disease Mother -: Other (see notes) Notes: myositis - Social History Smoking Status: Never smoker Alcohol use: No CD- Drugs: No Caffeine use: No Place of Residence: [facility]irement Review of Systems is unable to be obtained Physical Examination - Physical Exam General: Oriented x1, Confused HEENT: Other (mm dry) Neck: Supple Respiratory: Diminished Cardiovascular: No edema, Normal S1 S2 Capillary refill: <2 Seconds Gastrointestinal: Normal bowel sounds, Soft and benign Musculoskeletal: No erythema, No tenderness Integumentary: No tenderness/swelling, No erythema Neurological: Other (Patient is bedbound with only limited use of her right arm distal to the elbow otherwise does not move extremities. Currently oriented x1 family reports baseline A/O x2-3) Urinary: Cooper catheter - Studies Laboratory Data (last 24 hrs) 11/28/21 16:15: PT 11.1, INR 0.97, APTT 28.6 11/28/21 16:15: WBC 13.70 H, Hgb 13.3, Hct 39.3, Plt Count 248 11/28/21 16:15: Sodium 130 L, Potassium 2.4 L*, BUN 8, Creatinine 0.32 L, Glucose 183 H, Total Bilirubin 0.3, AST 18, ALT 21, Alkaline Phosphatase 99 Assessment and Plan - Plan Assessment: Acute hypoxic respiratory failure secondary to COVID-19 pneumonia UTI Hypokalemia Bedbound/medical debility secondary to inclusion body myositis Plan: Acute hypoxic respiratory failure secondary to COVID-19 pneumonia: Trend CRP, pulmonology consulted continue with IV steroids. Supplemental oxygen as needed. UTI: Patient with multiple drug allergies received Rocephin in the emergency department tolerating well at this time. We will continue Rocephin, urine culture obtained. Hypokalemia: Protocol in place continue dextrose/potassium containing IV fluids. Bedbound/medical debility secondary to inclusion body myositis: Patient is bedbound with only limited use of right upper extremity distal to the elbow, reportedly usually feeds her self but is with increased altered mental status. Will perform bedside swallow screen if patient passes can continue residential diet if fails will need to be n.p.o. and continue IV fluids. DVT PPX: Lovenox Code status: Full Discharge Plan: Retirement Plan to discharge in: 72 Hours - Advance Directives Does patient have a Living Will: Yes Does patient have a Durable POA for Healthcare: Yes - Code Status/Comfort Care Code Status Assessed: Yes (Full code) Critical Care: No Time Spent Managing Pts Care (In Minutes): 55
[2021-11-28] MEDS ORDERED: ONDANSETRON 4 MG/2 ML VIAL IV PRN (21:30)
[2021-11-28] MEDS ORDERED: ACETAMINOPHEN 650MG/RECT SUPP PR PRN (21:30)
[2021-11-28] MEDS ORDERED: KCL 20 MEQ/100 mL IVPB 100 ML IV ONE (21:36)
[2021-11-28] MEDS ORDERED: NA CHLORIDE 0.9% 500 ML ONE (21:38)
[2021-11-28] MEDS: METHYLPREDNISOLONE 40 MG INJ IV SCH (22:40)
[2021-11-28] MEDS: D5.45NS W/KCL 20MEQ 1,000 ML IV SCH (23:03)
[2021-11-29 01:54] LABS: Urine Appearance CLOUDY (Clear); Urine Bilirubin NEGATIVE (Negative); Urine Blood NEGATIVE (Negative); Urine Color DK YELLOW (Yellow); Urine Glucose NEGATIVE (Negative); Urine Protein 1+ (Negative); Urine pH 6.5 (5.0-7.0)
[2021-11-29 02:01] LABS: Urine Microscopic Reflex ORDER UMIC
[2021-11-29 03:53] LABS: Urine Mucus 1+ /HPF (NONE SEEN)
[2021-11-29 03:54] LABS: Urine Bacteria <20 /HPF (<20); Urine RBC <5 /HPF (NONE SEEN); Urine Urothelial Cells <5 /HPF (NONE SEEN)
[2021-11-29 03:56] LABS: Absolute Lymphocytes (CBC) 0.3 K/uL (0.7-4.9); Hematocrit 34.1 % (36.0-45.0); Lymphocytes % 2.5 % (15.3-44.8); MPV 9.4 fL (7.6-11.3); RBC Red Blood Cell Count 3.93 M/uL (3.86-4.86)
[2021-11-29 04:33] LABS: ALT/SGPT 18 U/L (12-78); AST/SGOT 15 U/L (15-37); Albumin 2.1 g/dL (3.4-5.0); Alkaline Phosphatase 87 U/L (45-117); BUN Blood Urea Nitrogen 8 mg/dL (7-18); Bicarbonate 27 mmol/L (21-32); Bilirubin Total 0.2 mg/dL (0.2-1.0); Glucose Level 209 mg/dL (74-106); HDL Cholesterol 55 mg/dL (40-60); LDL Cholesterol, Calculated 65 (<130); Protein, Total 6.2 g/dL (6.4-8.2); Sodium Level 134 mmol/L (136-145); Thyroid Stimulating Hormone 0.401 uIU/mL (0.360-3.740)
[2021-11-29 04:34] LABS: Potassium 2.5 mmol/L (3.5-5.1)
[2021-11-29] MEDS ORDERED: POTASSIUM CL SA 10 MEQ TAB PO ONE (07:02)
[2021-11-29] MEDS: ENOXAPARIN 40 MG/0.4 ML SQ SCH (09:36)
[2021-11-29] MEDS: KCL 20 MEQ/100 mL IVPB 20 MEQ/100 ML BAG IV SCH ×2 (09:36→12:07)
[2021-11-29] MEDS: METHYLPREDNISOLONE 40 MG INJ IV SCH ×2 (09:36→22:05)
[2021-11-29] MEDS: D5.45NS W/KCL 20MEQ 1,000 ML IV SCH ×2 (10:12→17:30)
[2021-11-29 12:22] LABS: Magnesium 1.7
--- NOTE | 2021-11-29 12:27 | P.CNS ---
Date of Consult: 11/29/21 Reason for Consult: Positive for coronavirus Primary Care Provider: senior living doctor Chief Complaint: Altered mental status coronavirus positive History of Present Illness: Patient is 76 years of age bedbound long term resident with hypertension admitted with altered mental status and fever elevated white count possible UTI currently she is unresponsive saturations satisfactory also hypokalemia mild changes on the x-ray Allergies levofloxacin [From Levaquin] Allergy (Verified 03/13/17 18:21) Rash Penicillins Allergy (Verified 03/13/17 18:21) Rash Home Medications: Docusate Sodium 100 mg PO PRN 06/11/19 Estrogens,Conj [Premarin*] 0.3 mg PO DAILY 06/11/19 Metoclopramide HCl [Reglan] 10 mg PO DAILY 06/11/19 PARoxetine HCL [Paroxetine HCl] 20 mg PO DAILY 06/11/19 Ranitidine [Zantac*] 150 mg PO PRN PRN 06/11/19 Sennosides/Docusate Sodium [Senna-S Tablet] 50 mg PO PRN PRN 06/11/19 Sulfamethoxazole/Trimethoprim [Bactrim 400-80 mg Tablet] 1 tab PO DAILY 06/11/19 Amlodipine Besylate 10 mg PO DAILY #30 tablet 06/12/19 Esomeprazole Mag Trihydrate [Nexium] 40 mg PO DAILY #30 capsule. 06/12/19 Ferrous Sulfate 325 mg PO DAILY 06/16/19 Valsartan [Diovan] 320 mg PO DAILY 06/16/19 Esomeprazole Mag Trihydrate [Nexium] 40 mg PO DAILY #30 capsule. 06/17/19 - Past Medical/Surgical History Diabetic: No -: Inclusion body myocytis (degenerative muscle disease) -: HTN -: anxiety -: Hysterectomy -: tonsillectomy -: appendectomy -: A&P REPAIR Psychosocial/ Personal History: Patient is a resident of [facility] - Family History Father Medical History: Heart disease Mother Medical History: Other (see notes) Notes: myositis - Social History Smoking Status: Unknown if ever smoked Alcohol use: No CD- Drugs: No Caffeine use: No Place of Residence: [facility] Review of Systems is unable to be obtained Physical Examination Temp Pulse Resp BP Pulse Ox 97.6 F 90 18 140/72 95 11/29/21 08:00 11/29/21 08:00 11/29/21 08:00 11/29/21 08:00 11/29/21 08:00 General: Unresponsive Neck: Supple Respiratory: Clear to auscultation bilaterally Laboratory Data (last 24 hrs) 11/28/21 16:15: PT 11.1, INR 0.97, APTT 28.6 11/28/21 16:15: WBC 13.70 H, Hgb 13.3, Hct 39.3, Plt Count 248 11/28/21 16:15: Sodium 130 L, Potassium 2.4 L*, BUN 8, Creatinine 0.32 L, Glucose 183 H, Total Bilirubin 0.3, AST 18, ALT 21, Alkaline Phosphatase 99 - Problems (1) Coronavirus infection Current Visit: Yes Status: Acute Plan: Patient is 76 years of age long term resident admitted with coronavirus infection altered mental status chest x-ray is clear room air saturation is normal mildly elevated white count possible UTI blood pressure stable continue with IV fluids steroids antibiotic potassium replacement not sure why she is so hypokalemic may be on diuretic
--- NOTE | 2021-11-29 13:06 | EKG ---
Test Date: 2021-11-28 Test Time: 16:05:23 Core Placer: MEASUREMENT RESULTS: Intervals: Rate: 116 NE: 152 QRSD: 92 QT: 348 QTc: 483 [place]: P: 79 NE: 152 QRS: -71 T: 90 INTERPRETIVE STATEMENTS: Sinus tachycardia Left axis deviation Inferior infarct, age undetermined Anterior infarct, age undetermined Abnormal ECG Compared to ECG 06/15/2019 21:52:52 No significant changes Electronically Signed On 11-29-21 13:03:10 HAT CONE INSPECTOR by Luis Antonio Reeder
--- NOTE | 2021-11-29 13:24 | P.PN ---
Subjective Date of Service: 11/29/21 Primary Care Provider: snf doctor Chief Complaint: Altered mental status coronavirus positive Subjective: No new changes (Patient is apparently having difficulty eating. She is pending a formal swallow evaluation.) Physical Examination - Vital Signs Temperature: 97.8 F Blood Pressure: 177/84 Pulse: 110 Respirations: 18 Pulse Ox (%): 98 - Physical Exam General: Confused HEENT: Atraumatic, Normocephalic Respiratory: Other (Unlabored breathing) Gastrointestinal: Soft and benign, Non-distended Musculoskeletal: No clubbing, No swelling Neurological: Dementia - Studies Laboratory Data (last 24 hrs) 11/28/21 16:15: PT 11.1, INR 0.97, APTT 28.6 11/28/21 16:15: WBC 13.70 H, Hgb 13.3, Hct 39.3, Plt Count 248 11/28/21 16:15: Sodium 130 L, Potassium 2.4 L*, BUN 8, Creatinine 0.32 L, Glucose 183 H, Total Bilirubin 0.3, AST 18, ALT 21, Alkaline Phosphatase 99 Microbiology Data (last 24 hrs): 11/28/21 17:20 Blood - Blood Blood Culture Gram Stain - Final Assessment And Plan - Current Problems (Diagnosis) (1) Hypokalemia Current Visit: Yes Status: Acute (2) Generalized weakness Current Visit: Yes Status: Acute (3) Coronavirus infection Current Visit: Yes Status: Acute (4) Hypertension Onset Date: 10/25/16 Current Visit: No Status: Acute (5) Hyponatremia Onset Date: 11/01/14 Current Visit: No Status: Acute (6) UTI (urinary tract infection) Onset Date: 03/18/17 Current Visit: No Status: Acute Physician Review Additional Text: Assessment 76-year-old female bedbound and the group home resident. She has a history of hypertension and inclusion body myositis. She was admitted for evaluation of fever and worsening mental status. She tested positive for COVID- 19 a few days before her admission. She is maintaining good oxygen saturation on room air. She has mild evidence of mild interstitial lung opacities on chest x-ray. Her blood culture shows gram-positive cocci in cluster Sepsis Gram positive cocci bacteremia Acute encephalopathy COVID-19 pneumonia UTI Hypokalemia Generalized weakness Inclusion body myositis Hypertension Plan We will add vancomycin for gram-positive cocci in clusters bacteremia Continue ceftriaxone and azithromycin for Covid pneumonia This will also empirically cover for possible UTI Continue systemic steroids VTE and GI ppx on board Repeat BMP this afternoon and replace potassium if indicated Daily speech therapy and swallow evaluation
[2021-11-29] MEDS ORDERED: AZITHROMYCIN IV 500 MG in NA CHLORIDE 0.9% 250 ML IVPB SCH (13:30)
[2021-11-29] MEDS: AMLODIPINE 5 MG TAB PO SCH (13:30)
[2021-11-29] MEDS ORDERED: SODIUM CHLORIDE 0.9% 10ML INJ IV PRN (13:33)
[2021-11-29] MEDS: VALSARTAN 160 MG TAB PO SCH (15:00)
[2021-11-29 15:28] LABS: BUN Blood Urea Nitrogen 8 mg/dL (7-18); Bicarbonate 25 mmol/L (21-32); Glucose Level 134 mg/dL (74-106); Sodium Level 136 mmol/L (136-145)
[2021-11-29] MEDS: PANTOPRAZOLE 40 MG INJ IVP SCH (15:46)
[2021-11-29] MEDS: HYDRALAZINE HCL 20 MG/ML VIAL IV PRN ×2 (15:47→22:07)
[2021-11-29] MEDS: VANCOMYCIN 1.5 GM in NA CHLORIDE 0.9% 500 ML IVPB SCH (15:47)
[2021-11-29] MEDS ORDERED: JEVITY 1.2 CAL LIQUID 1,000 ML BOT RTH SCH (16:00)
--- NOTE | 2021-11-29 17:16 | RAD REPORT ---
EXAM DESCRIPTION: RAD - Chest Single View - 11/29/2021 5:07 pm CLINICAL HISTORY: placement of NG tube COMPARISON: CT study May 2019 TECHNIQUE: AP portable chest image was obtained 11/29/2021 5:07 pm . FINDINGS: NG/OG tube has been placed with the tubing curled in midline lower chest at the level of t he diaphragm. Review of prior CT imaging shows a small hiatal hernia. The NG tubing is curled within the herniated portion of the stomach the lies within the lower chest. IMPRESSION: Patient has a small hiatal hernia and the NG/OG tube is curled within the herniated port ion of the stomach.
[2021-11-29] MEDS: CEFTRIAXONE 1,000 MG in NA CHLORIDE 0.9% 50 ML IVPB SCH (18:35)
[2021-11-29] MEDS: AZITHROMYCIN IV 500 MG in NA CHLORIDE 0.9% 250 ML IVPB SCH (18:36)
--- NOTE | 2021-11-29 19:24 | RAD REPORT ---
EXAM DESCRIPTION: RAD - Chest Single View - 11/29/2021 6:53 pm CLINICAL HISTORY: NGT re-adjust COMPARISON: Chest November 29 TECHNIQUE: AP portable chest image was obtained 11/29/2021 6:53 pm . FINDINGS: NG/OG tube remains curled in the hiatal hernia. No new heart, vascular or lung parenchymal finding.
[2021-11-29] MEDS ORDERED: LORazepam 2 MG/ML VIAL IV ONE (22:49)
[2021-11-30] MEDS: D5.45NS W/KCL 20MEQ 1,000 ML IV SCH ×2 (03:40→13:24)
[2021-11-30 04:06] LABS: Absolute Lymphocytes (CBC) 0.4 K/uL (0.7-4.9); Lymphocytes % 2.8 % (15.3-44.8); MPV 9.2 fL (7.6-11.3); RBC Red Blood Cell Count 4.01 M/uL (3.86-4.86)
[2021-11-30 04:44] LABS: Blood Morphology Comment NOT SEEN (NOT SEEN); Platelet Estimate ADEQ
[2021-11-30 05:18] LABS: ALT/SGPT 24 U/L (12-78); AST/SGOT 27 U/L (15-37); Albumin 2.1 g/dL (3.4-5.0); Alkaline Phosphatase 81 U/L (45-117); BUN Blood Urea Nitrogen 9 mg/dL (7-18); Bicarbonate 25 mmol/L (21-32); Bilirubin Total 0.2 mg/dL (0.2-1.0); Glucose Level 158 mg/dL (74-106); Potassium 3.2 mmol/L (3.5-5.1); Protein, Total 5.9 g/dL (6.4-8.2); Sodium Level 137 mmol/L (136-145)
[2021-11-30] MEDS ORDERED: KCL 20 MEQ/100 mL IVPB 20 MEQ/100 ML BAG IV SCH (08:00)
[2021-11-30] MEDS: LABETALOL 20 MG/4ML SYRINGE IV PRN (08:01)
[2021-11-30] MEDS: KCL 20 MEQ/100 mL IVPB 20 MEQ/100 ML BAG IV SCH ×2 (08:01→09:23)
[2021-11-30] MEDS: ENOXAPARIN 40 MG/0.4 ML SQ SCH (08:02)
[2021-11-30] MEDS: METHYLPREDNISOLONE 40 MG INJ IV SCH ×2 (08:04→21:56)
[2021-11-30] MEDS: AZITHROMYCIN IV 500 MG in NA CHLORIDE 0.9% 250 ML IVPB SCH (08:04)
[2021-11-30] MEDS: PANTOPRAZOLE 40 MG INJ IVP SCH (08:04)
[2021-11-30] MEDS: PARoxetine HCL 10 MG TAB PO SCH (08:05)
[2021-11-30] MEDS: VALSARTAN 160 MG TAB PO SCH (08:05)
[2021-11-30] MEDS: AMLODIPINE 5 MG TAB PO SCH (08:05)
[2021-11-30] MEDS: FERROUS SULFATE 325 MG TAB PO SCH (08:05)
--- NOTE | 2021-11-30 12:01 | P.PN ---
Subjective Date of Service: 11/30/21 Primary Care Provider: care home doctor Chief Complaint: Altered mental status coronavirus positive Subjective: Improving (Patient is more alert and awake. No acute events overnight. She has E. coli UTI) Physical Examination - Vital Signs Temperature: 97.0 F Blood Pressure: 177/105 Pulse: 112 Respirations: 20 Pulse Ox (%): 95 - Physical Exam General: Other (physically deconditioned) HEENT: Atraumatic, Normocephalic Neck: Supple Respiratory: Other (Unlaboured breathing) Gastrointestinal: Soft and benign, Non-distended Musculoskeletal: No clubbing, No swelling - Studies Microbiology Data (last 24 hrs): 11/28/21 16:35 Clean Catch Urine [place] Count - Final >100,000 CFU/ML. 11/28/21 16:35 Clean Catch Urine - Final Escherichia Coli 11/28/21 17:35 Blood - Blood Blood Culture Gram Stain - Final 11/28/21 17:20 Blood - Blood Blood Culture Gram Stain - Final Assessment And Plan - Current Problems (Diagnosis) (1) Hypokalemia Current Visit: Yes Status: Acute (2) Generalized weakness Current Visit: Yes Status: Acute (3) Coronavirus infection Current Visit: Yes Status: Acute (4) Hypertension Onset Date: 10/25/16 Current Visit: No Status: Acute (5) Hyponatremia Onset Date: 11/01/14 Current Visit: No Status: Acute (6) UTI (urinary tract infection) Onset Date: 03/18/17 Current Visit: No Status: Acute Physician Review Additional Text: Assessment 76-year-old female bedbound and the [facility] resident. She has a history of hypertension and inclusion body myositis. She was admitted for evaluation of fever and worsening mental status. She tested positive for COVID- 19 a few days before her admission. She is maintaining good oxygen saturation on room air. She has mild evidence of mild interstitial lung opacities on chest x-ray. Her blood culture shows gram-positive cocci in cluster Sepsis Bacteremia- gram positive cocci in clusters Acute encephalopathy COVID-19 pneumonia UTI Hypokalemia Generalized weakness Inclusion body myositis Hypertension Plan Day 2 of vancomycin Continue ceftriaxone and azithromycin for Covid pneumonia/E.coli UTI Continue systemic steroids VTE and GI ppx on board Repeat blood cultures Add IV PRN labetalol for uncontrolled BP Daily speech therapy and swallow evaluation
[2021-11-30] MEDS: VANCOMYCIN 1.5 GM in NA CHLORIDE 0.9% 500 ML IVPB SCH (14:52)
[2021-11-30 16:14] LABS: Magnesium 1.7
[2021-11-30] MEDS: CEFTRIAXONE 1,000 MG in NA CHLORIDE 0.9% 50 ML IVPB SCH (17:05)
[2021-11-30] MEDS: HYDRALAZINE HCL 20 MG/ML VIAL IV PRN (23:24)
[2021-12-01] MEDS: D5.45NS W/KCL 20MEQ 1,000 ML IV SCH ×2 (02:53→08:43)
[2021-12-01 04:14] LABS: Absolute Lymphocytes (CBC) 0.5 K/uL (0.7-4.9); Hematocrit 37.3 % (36.0-45.0); Lymphocytes % 2.9 % (15.3-44.8); MPV 8.8 fL (7.6-11.3); RBC Red Blood Cell Count 4.31 M/uL (3.86-4.86)
[2021-12-01 06:22] LABS: ALT/SGPT 25 U/L (12-78); AST/SGOT 26 U/L (15-37); Albumin 2.3 g/dL (3.4-5.0); Alkaline Phosphatase 95 U/L (45-117); BUN Blood Urea Nitrogen 10 mg/dL (7-18); Bicarbonate 21 mmol/L (21-32); Bilirubin Total 0.4 mg/dL (0.2-1.0); Glucose Level 142 mg/dL (74-106); Potassium 3.7 mmol/L (3.5-5.1); Protein, Total 6.6 g/dL (6.4-8.2); Sodium Level 136 mmol/L (136-145)
[2021-12-01] MEDS: FERROUS SULFATE 325 MG TAB PO SCH (08:41)
[2021-12-01] MEDS: ENOXAPARIN 40 MG/0.4 ML SQ SCH (08:41)
[2021-12-01] MEDS: PARoxetine HCL 10 MG TAB PO SCH (08:41)
[2021-12-01] MEDS: VALSARTAN 160 MG TAB PO SCH (08:41)
[2021-12-01] MEDS: AMLODIPINE 5 MG TAB PO SCH (08:42)
[2021-12-01] MEDS: AZITHROMYCIN IV 500 MG in NA CHLORIDE 0.9% 250 ML IVPB SCH (08:43)
[2021-12-01] MEDS: METHYLPREDNISOLONE 40 MG INJ IV SCH ×2 (08:43→21:00)
[2021-12-01] MEDS: PANTOPRAZOLE 40 MG INJ IVP SCH (08:43)
[2021-12-01] MEDS ORDERED: POTASSIUM CL 20 MEQ in NA CHLORIDE 0.9% 20 MEQ/100 ML BAG IV ONE (09:00)
[2021-12-01] MEDS: LABETALOL 20 MG/4ML SYRINGE IV PRN (10:20)
[2021-12-01] MEDS ORDERED: CLONIDINE 0.2 MG/PATCH TD SCH (12:00)
--- NOTE | 2021-12-01 12:19 | P.PN ---
Subjective Date of Service: 12/01/21 Primary Care Provider: residential doctor Chief Complaint: Altered mental status coronavirus positive Subjective: Worsening (She became suddenly hypoxic this afternoon. Tachycardic and agitated.) Physical Examination - Vital Signs Temperature: 98.2 F Blood Pressure: 163/109 Pulse: 158 Respirations: 19 Pulse Ox (%): 94 - Physical Exam General: Moderate distress, Obese HEENT: Atraumatic, Normocephalic Respiratory: Diminished Cardiovascular: Regular rate/rhythm, Normal S1 S2 Gastrointestinal: Soft and benign, Non-distended Neurological: Dementia - Studies Microbiology Data (last 24 hrs): 11/28/21 17:35 Blood - Blood Blood Culture Gram Stain - Final 11/28/21 17:35 Blood - Blood Gram Stain - Final 11/28/21 17:20 Blood - Blood Blood Culture Gram Stain - Final 11/28/21 17:20 Blood - Blood Gram Stain - Final 11/28/21 16:35 Clean Catch Urine [place] Count - Final >100,000 CFU/ML. 11/28/21 16:35 Clean Catch Urine - Final Escherichia Coli Assessment And Plan - Current Problems (Diagnosis) (1) Hypokalemia Current Visit: Yes Status: Acute (2) Generalized weakness Current Visit: Yes Status: Acute (3) Coronavirus infection Current Visit: Yes Status: Acute (4) Hypertension Onset Date: 10/25/16 Current Visit: No Status: Acute (5) Hyponatremia Onset Date: 11/01/14 Current Visit: No Status: Acute (6) UTI (urinary tract infection) Onset Date: 03/18/17 Current Visit: No Status: Acute Physician Review Additional Text: Assessment 76-year-old female bedbound and the senior care resident. She has a history of hypertension and inclusion body myositis. She was admitted for evaluation of fever and worsening mental status. She tested positive for COVID- 19 a few days before her admission. She is maintaining good oxygen saturation on room air. She has mild evidence of mild interstitial lung opacities on chest x-ray. Her blood culture shows gram-positive cocci in cluster. She was relatively stable until 12/01 when she suddenly became hypoxic and tachycardic. Sepsis Staph epi bacteremia Acute encephalopathy COVID-19 pneumonia Acute systolic CHF- LVEF of 35 to 40% UTI Hypokalemia Generalized weakness Inclusion body myositis Hypertension Plan CXR with worsening infiltrates. Will broaden abx to cefepime, and add flagyl due to concern for aspiration Continue IV vancomycin for staph epi bacteremia. TTE w/o signs of vegetations Cefepime to cover E coli UTI as well Continue systemic steroids VTE and GI ppx on board Repeat blood cultures Add IV PRN labetalol for uncontrolled BP Daily speech therapy and swallow evaluation
--- NOTE | 2021-12-01 12:29 | P.PN ---
Subjective Date of Service: 12/01/21 Primary Care Provider: senior living doctor Chief Complaint: Altered mental status coronavirus positive Subjective: NPO No change in patient's condition continues to remain altered although is able to eat Review of Systems is unable to be obtained Physical Examination - Vital Signs Temperature: 98.2 F Blood Pressure: 163/109 Pulse: 158 Respirations: 19 Pulse Ox (%): 94 - Physical Exam General: Delirious, Unresponsive Respiratory: Crackles/rales, Rhonchi/gurgles Cardiovascular: No edema, Regular rate/rhythm - Studies Microbiology Data (last 24 hrs): 11/28/21 17:35 Blood - Blood Blood Culture Gram Stain - Final 11/28/21 17:35 Blood - Blood Gram Stain - Final 11/28/21 17:20 Blood - Blood Blood Culture Gram Stain - Final 11/28/21 17:20 Blood - Blood Gram Stain - Final 11/28/21 16:35 Clean Catch Urine [place] Count - Final >100,000 CFU/ML. 11/28/21 16:35 Clean Catch Urine - Final Escherichia Coli Assessment And Plan - Current Problems (Diagnosis) (1) Coronavirus infection Current Visit: Yes Status: Acute Plan: Patient admitted with coronavirus infection possible Covid encephalopathy I have added since thiamine DC Zithromax continue with Rocephin may have underlying sepsis patient's blood pressure is very elevated borderline hypoxemia also added clonidine patch due to severe hypertension recommend discharge back to the senior living sitter DNR hospice care prognosis very poor staph epidermidis most likely contaminant
[2021-12-01 12:55] LABS: Blood O2 Saturation 94.6 % (92-98.5)
[2021-12-01 12:56] LABS: Arterial Blood Carboxyhemoglob 0.7 % (0-1.5); Blood Gas Oxyhemoglobin 92.9 % (94-97)
--- NOTE | 2021-12-01 13:06 | RAD REPORT ---
EXAM DESCRIPTION: RAD - Chest Single View - 12/01/2021 12:56 pm CLINICAL HISTORY: Shortness of breath. Chest pain. COMPARISON: Chest Single View dated 11/29/2021; Chest Single View dated 11/29/2021; Chest Single View da [place] 11/28/2021; Chest Single View dated 06/15/2019 FINDINGS: Portable technique limits examination quality. Asymmetric bilateral pulmonary opacities are present, greater on the right, which may represent pneum onia. The findings appear moderately worse on the right since the comparative radiograph. The heart i s mildly prominent in size.
[2021-12-01] MEDS: THIAMINE 200 MG/2 ML INJ IVP SCH ×2 (13:59→21:00)
--- NOTE | 2021-12-01 14:40 | EKG ---
Test Date: 2021-12-01 Test Time: 00:05:53 [place] Worker: RT Boyle MEASUREMENT RESULTS: Intervals: Rate: 122 AR: 144 QRSD: 68 QT: 310 QTc: 441 [place]: P: 90 AR: 144 QRS: -63 T: 90 INTERPRETIVE STATEMENTS: Sinus tachycardia with premature supraventricular complexes with occasional premature ventricular complexes Possible Left atrial enlargement Left axis deviation Low voltage QRS Cannot rule out Anteroseptal infarct, age undetermined Abnormal ECG Compared to ECG 11/28/2021 16:05:23 Atrial premature complex(es) now present Ventricular premature complex(es) now present Low QRS voltage now present Myocardial infarct finding still present Electronically Signed On 12-01-21 14:39:33 V BELT COVERER by Luis Antonio Reeder
[2021-12-01] MEDS: CEFEPIME 2 GM in NA CHLORIDE 0.9% 100 ML IV SCH (14:54)
--- NOTE | 2021-12-01 14:54 | ECHO ---
HEIGHT: 5 ft 8 in WEIGHT: 175 lb 0 oz DATE OF STUDY: 12/01/[address]: Prince Hesham Roberto MD 2-DIMENSIONAL: YES M.MODE: YES DOPPLER: YES COLOR FLOW: YES TDS: YES PORTABLE: YES DEFINITY: NO BUBBLE STUDY: NO DIAGNOSIS: RULE OUT VEGETATIONS CARDIAC HISTORY: CATHERIZATION: SURGERY: PROSTHETIC VALVE: PACEMAKER: MEASUREMENTS (cm) DIASTOLIC (NORMALS) SYSTOLIC (NORMALS) IVSd 1.1 (0.6-1.2) LA Diam 2.9 (1.9-4.0) LVEF 40-45% LVIDd 4.0 (3.5-5.7) LVIDs 2.9 (2.0-3.5) %FS 28% LVPWd 1.1 (0.6-1.2) Ao Diam 2.7 (2.0-3.7) 2 DIMENSIONAL ASSESSMENT: RIGHT ATRIUM: NORMAL LEFT ATRIUM: NORMAL RIGHT VENTRICLE: NORMAL LEFT VENTRICLE: NORMAL TRICUSPID VALVE: NORMAL MITRAL VALVE: NORMAL PULMONIC VALVE: NORMAL AORTIC VALVE: NORMAL PERICARDIAL EFFUSION: NONE AORTIC ROOT: NORMAL LEFT VENTRICULAR WALL MOTION: ANTERIOAPICAL AKINESIS. DOPPLER/COLOR FLOW: NORMAL COMMENTS: ANTERIOAPICAL AKINESIS CONSISENT WITH CORONARY ARTERY DISEASE. LEFT VENTRICULAR EJECTION FRACTION 40-45%. TECHNICALLY DIFFICULT STUDY. NO VEGETATION. TECHNOLOGIST: Akshat RAYGOZA
[2021-12-01] MEDS: BARICITINIB 2 MG TABLET PO SCH (15:00)
[2021-12-01] MEDS ORDERED: FUROSEMIDE 40 MG/4 ML VIAL IV ONE (15:00)
[2021-12-01 15:35] LABS: Magnesium 1.5
[2021-12-01] MEDS ORDERED: LORazepam 2 MG/ML VIAL IV ONE (16:00)
[2021-12-01] MEDS: METRONIDAZOLE 500mg IVPB 500 MG/100 ML BAG IV SCH ×2 (16:55→17:00)
[2021-12-01] MEDS ORDERED: MORPHINE 2 MG/ML SYR IV ONE (18:22)
[2021-12-01] MEDS: ENOXAPARIN 80 MG/0.8 ML SQ SCH (21:00)
[2021-12-01] MEDS ORDERED: ENOXAPARIN 40 MG/0.4 ML SQ SCH (21:00)
[2021-12-01] MEDS: FUROSEMIDE 40 MG/4 ML VIAL IV SCH (21:00)
[2021-12-01] MEDS ORDERED: NA CHLORIDE 0.9% 100 ML ONE (21:03)
[2021-12-01] MEDS ORDERED: CEFEPIME 2 GM VIAL ONE (21:06)
[2021-12-01] MEDS: LORazepam 2 MG/ML VIAL IV PRN (22:25)
[2021-12-01] MEDS ORDERED: NA CHLORIDE 0.9% 500 ML IV ONE (23:01)
[2021-12-01] MEDS ORDERED: METOPROLOL TARTRATE 5 MG/5 ML INJ IV STA (23:01)
[2021-12-02] MEDS ORDERED: METOPROLOL TARTRATE 5 MG/5 ML INJ IV STA (00:52)
[2021-12-02] MEDS: METRONIDAZOLE 500mg IVPB 500 MG/100 ML BAG IV SCH ×2 (01:34→09:27)
[2021-12-02] MEDS ORDERED: NA CHLORIDE 0.9% 1,000 ML ONE (01:39)
[2021-12-02] MEDS: LORazepam 2 MG/ML VIAL IV PRN ×2 (02:49→10:12)
[2021-12-02] MEDS: FERROUS SULFATE 325 MG TAB PO SCH (09:00)
[2021-12-02] MEDS: AMLODIPINE 5 MG TAB PO SCH (09:00)
[2021-12-02] MEDS: BARICITINIB 2 MG TABLET PO SCH ×2 (09:00→10:00)
[2021-12-02] MEDS: PARoxetine HCL 10 MG TAB PO SCH (09:00)
[2021-12-02] MEDS: VALSARTAN 160 MG TAB PO SCH (09:00)
--- NOTE | 2021-12-02 09:14 | RAD REPORT ---
EXAM DESCRIPTION: [place] Single View12/02/2021 7:16 am CLINICAL HISTORY: Chest pain COMPARISON: December 01, 2021 FINDINGS: Mild worsening in the bilateral pulmonary opacities right worse than left. Heart is normal size IMPRESSION: Mild worsening in the bilateral pulmonary opacities probably pneumonia
[2021-12-02] MEDS: FUROSEMIDE 40 MG/4 ML VIAL IV SCH (09:25)
[2021-12-02] MEDS: ENOXAPARIN 80 MG/0.8 ML SQ SCH ×2 (09:25→20:52)
[2021-12-02] MEDS: THIAMINE 200 MG/2 ML INJ IVP SCH ×2 (09:26→20:51)
[2021-12-02] MEDS: METHYLPREDNISOLONE 40 MG INJ IV SCH ×2 (09:26→20:51)
[2021-12-02] MEDS: PANTOPRAZOLE 40 MG INJ IVP SCH (09:26)
[2021-12-02] MEDS ORDERED: VANCOMYCIN 1.25 GM in NA CHLORIDE 0.9% 250 ML IVPB SCH (10:00)
--- NOTE | 2021-12-02 10:01 | P.PN ---
Subjective Date of Service: 12/02/21 Primary Care Provider: [facility]PC doctor Chief Complaint: Altered mental status coronavirus positive Subjective: Worsening (Unable to obtain labs today due to lack of access. Will place a PICC) Physical Examination - Vital Signs Temperature: 96.8 F Blood Pressure: 146/97 Pulse: 125 Respirations: 35 Pulse Ox (%): 96 - Physical Exam General: Confused, Obese HEENT: Atraumatic, Normocephalic Neck: Supple Respiratory: Other (HIGH FLOW NASAL CANNULA) Cardiovascular: Regular rate/rhythm, Normal S1 S2, No murmurs Gastrointestinal: Soft and benign, Non-distended - Studies Microbiology Data (last 24 hrs): 11/28/21 17:35 Blood - Blood Aerobic Blood Culture - Final Staph Epidermidis 11/28/21 17:35 Blood - Blood Blood Culture Gram Stain - Final 11/28/21 17:35 Blood - Blood Anaerobic Blood Culture - Final Staph Epidermidis 11/28/21 17:35 Blood - Blood Gram Stain - Final 11/28/21 17:20 Blood - Blood Aerobic Blood Culture - Final Staph Epidermidis 11/28/21 17:20 Blood - Blood Blood Culture Gram Stain - Final 11/28/21 17:20 Blood - Blood Anaerobic Blood Culture - Final Staph Epidermidis 11/28/21 17:20 Blood - Blood Gram Stain - Final Assessment And Plan - Current Problems (Diagnosis) (1) Hypokalemia Current Visit: Yes Status: Acute (2) Generalized weakness Current Visit: Yes Status: Acute (3) Coronavirus infection Current Visit: Yes Status: Acute (4) Hypertension Onset Date: 10/25/16 Current Visit: No Status: Acute (5) Hyponatremia Onset Date: 11/01/14 Current Visit: No Status: Acute (6) UTI (urinary tract infection) Onset Date: 03/18/17 Current Visit: No Status: Acute Physician Review Additional Text: Assessment 76-year-old female bedbound and the intermediate resident. She has a history of hypertension and inclusion body myositis. She was admitted for evaluation of fever and worsening mental status. She tested positive for COVID- 19 a few days before her admission. She is maintaining good oxygen saturation on room air. She has mild evidence of mild interstitial lung opacities on chest x-ray. Her blood culture shows gram-positive cocci in cluster. She was relatively stable until 12/01 when she suddenly became hypoxic and tachycardic. Sepsis Staph epi bacteremia Acute metabolic encephalopathy COVID-19 pneumonia Acute systolic CHF- LVEF of 35 to 40% UTI Hypokalemia Generalized weakness Inclusion body myositis Hypertension Plan CXR with worsening infiltrates. She is currently on cefepime and flagyl. Will add vancomycin given + MRSA screen Staph epi bacteremia. TTE w/o signs of vegetations Cefepime to cover E coli UTI as well Continue systemic steroids VTE and GI ppx on board Repeat blood cultures Add IV PRN labetalol for uncontrolled BP Daily speech therapy and swallow evaluation
[2021-12-02] MEDS: CEFEPIME 2 GM in NA CHLORIDE 0.9% 100 ML IV SCH ×2 (10:30→20:52)
[2021-12-02] MEDS: VANCOMYCIN 1.5 GM in NA CHLORIDE 0.9% 500 ML IVPB SCH (11:14)
--- NOTE | 2021-12-02 11:27 | P.PN ---
Subjective Date of Service: 12/02/21 Primary Care Provider: [facility]PC doctor Chief Complaint: Altered mental status coronavirus positive No change in patient's condition blood cultures are positive for staph epidermidis multiple blood cultures are positive agree with vancomycin is right now full code Review of Systems is unable to be obtained Physical Examination - Vital Signs Temperature: 96.8 F Blood Pressure: 146/97 Pulse: 125 Respirations: 35 Pulse Ox (%): 96 - Physical Exam General: Unresponsive Respiratory: Clear to auscultation bilaterally, Diminished - Studies Microbiology Data (last 24 hrs): 11/28/21 17:35 Blood - Blood Aerobic Blood Culture - Final Staph Epidermidis 11/28/21 17:35 Blood - Blood Blood Culture Gram Stain - Final 11/28/21 17:35 Blood - Blood Anaerobic Blood Culture - Final Staph Epidermidis 11/28/21 17:35 Blood - Blood Gram Stain - Final 11/28/21 17:20 Blood - Blood Aerobic Blood Culture - Final Staph Epidermidis 11/28/21 17:20 Blood - Blood Blood Culture Gram Stain - Final 11/28/21 17:20 Blood - Blood Anaerobic Blood Culture - Final Staph Epidermidis 11/28/21 17:20 Blood - Blood Gram Stain - Final Assessment And Plan - Current Problems (Diagnosis) (1) Coronavirus infection Current Visit: Yes Status: Acute Plan: Patient is requiring more oxygen chest x-ray worsened and she is currently on high concentrations of FiO2 (2) Bacteremia Current Visit: Yes Status: Acute Plan: Patient has multiple blood cultures positive for staph epidermidis agree with vancomycin MRSA isolated from nasal white count is elevated patient may have acute lung injury from sepsis DC Flagyl DC diuretics
[2021-12-02] MEDS ORDERED: NS 0.9% VIAL 10 ML ONE ×2 (14:10→14:25)
[2021-12-02] MEDS: NOREPINEPHRINE 4 MG in D5W 250 ML IV SCH (15:10)
--- NOTE | 2021-12-02 15:23 | RAD REPORT ---
EXAM DESCRIPTION: [place] Single View12/02/2021 3:13 pm CLINICAL HISTORY: Device placement/central venous catheter placement IMPRESSION: Central venous catheter placement attempt performed. Placement was unsuccessful. No pneumothorax
[2021-12-02 16:20] LABS: Hematocrit 33.8 % (36.0-45.0); Lymphocytes % 2.3 % (15.3-44.8); MPV 8.3 fL (7.6-11.3); RBC Red Blood Cell Count 3.93 M/uL (3.86-4.86)
[2021-12-02 16:21] LABS: Absolute Lymphocytes (CBC) 0.6 K/uL (0.7-4.9)
[2021-12-02 18:03] LABS: ALT/SGPT 28 U/L (12-78); AST/SGOT 31 U/L (15-37); Alkaline Phosphatase 103 U/L (45-117); BUN Blood Urea Nitrogen 19 mg/dL (7-18); Bicarbonate 24 mmol/L (21-32); Bilirubin Direct 0.3 mg/dL (0-0.2); Bilirubin Total 0.8 mg/dL (0.2-1.0); Glucose Level 139 mg/dL (74-106); NT PRO-BNP 42047 pg/mL (<450); Protein, Total 5.9 g/dL (6.4-8.2); Sodium Level 140 mmol/L (136-145)
[2021-12-02 18:07] LABS: Potassium 2.3 mmol/L (3.5-5.1)
[2021-12-02 19:04] LABS: Blood Morphology Comment NOT SEEN (NOT SEEN); Platelet Estimate INCR; Toxic Granulation PRESENT
[2021-12-02] MEDS: KCL 20 MEQ/100 mL IVPB 20 MEQ/100 ML BAG IV SCH ×2 (20:17→22:16)
--- NOTE | 2021-12-02 20:44 | RAD REPORT ---
EXAM DESCRIPTION: RAD - Abdomen 1 View (KUB) - 12/02/2021 7:59 pm CLINICAL HISTORY: Device placement Dobhoff tube placement FINDINGS: A Dobhoff is coiled within the distal esophagus. The tip is pointing cranially
[2021-12-02] MEDS: MORPHINE 2 MG/ML SYR IV PRN (21:11)
[2021-12-03] MEDS: KCL 20 MEQ/100 mL IVPB 20 MEQ/100 ML BAG IV SCH ×3 (00:27→16:59)
[2021-12-03] MEDS: VANCOMYCIN 1.5 GM in NA CHLORIDE 0.9% 500 ML IVPB SCH ×2 (04:15→23:03)
[2021-12-03] MEDS: NOREPINEPHRINE 4 MG in D5W 250 ML IV SCH (04:32)
--- NOTE | 2021-12-03 04:46 | OP ---
Date of Procedure: 12/02/2021 Surgeon: Tyler Gonzales MD Reason: Patient needs a central line stat. Patient has low blood pressure in the ICU with COVID pne umonia. History Of Present Illness: Patient is a 76-year-old female, bed-bound from alf, came in wi th COVID pneumonia, UTI. Has been treated, has progressively gotten worse, was transferred to the [facility]. PICC line was attempted, however, was unsuccessful. Patient is going to need pressors and she delgado s only about a small 22-gauge IV and she needs better access. Informed consent obtained from the [facility]. They understood risks, benefits, and alternatives and agreed to procedure. Review of Systems: Patient is unable to provide review of systems. She is confused and unable to communicate with us. Her review of systems otherwise unremarkable. Past Medical History: Degenerative muscle disease, inclusion body myositis, hypertension, and anxiet y. Past Surgical History: Hysterectomy, tonsillectomy, appendectomy, anterior-posterior repair. Allergies: INCLUDE LEVAQUIN AND PENICILLIN. Social History: Patient does not smoke or drink alcohol. Family History: Significant for heart disease and myositis in the mother. Physical Examination: Vital Signs: Currently stable. She is slightly tachycardic and she is afebrile. Blood pressure is down, however, prior to us putting in the central line as low as 79 systolic. Head and Neck: Patient is awake, but confused. No masses. Chest: Diminished breath sounds. Heart: S1 and S2. Abdomen: Soft. Extremities: Neurovascularly intact. Neuro: Nonfocal. Laboratory Data: Reviewed. Her white count today is 24.5, H and H of 11.4 and 33.8, platelets are 4 25 with a left shift. INR is 0.97. Chemistry reviewed. Assessment: A 76-year-old female with multiple medical problems with poor IV access, requires emerge nt central line. Plan: Informed consent obtained from family. We will proceed with central line placement. Procedure Note: First the patient was prepped draped in the right neck and chest area and then lidoc carina 1% was infiltrated locally. An 18-gauge needle was used to access the vein; however, it was gomez y difficult, perhaps because patient is dehydrated. I was unable to access it in the IJ region nor i n the subclavian region. So at this point, I felt like patient needed urgent access. I went to the right femoral area. Then, patient was prepped and draped over there. Lidocaine 1% was infiltrated l ocally. An 18-gauge needle was used to access the right femoral vein, guidewire passed, and nonpulsa tile dark red blood was aspirated, and then guidewire was placed, tract was dilated. Seldinger techn ique was used and triple-lumen catheter was placed and secured with 3-0 silk. Catheter was flushed w ith heparin and packed with heparin. Good blood flow. Sterile dressing applied. Patient tolerated the procedure and in stable condition. Chest x-ray was ordered to make sure patient does not have pn eumo and that was confirmed. /MODL Voice ID: [id number] Report ID: [id number]
[2021-12-03] MEDS: LORazepam 2 MG/ML VIAL IV PRN ×2 (06:09→13:10)
[2021-12-03] MEDS: MORPHINE 2 MG/ML SYR IV PRN ×3 (06:19→19:35)
[2021-12-03 06:44] LABS: Absolute Lymphocytes (CBC) 0.5 K/uL (0.7-4.9); Hematocrit 31.1 % (36.0-45.0); Lymphocytes % 2.3 % (15.3-44.8); MPV 8.9 fL (7.6-11.3); RBC Red Blood Cell Count 3.57 M/uL (3.86-4.86)
[2021-12-03 07:38] LABS: ALT/SGPT 24 U/L (12-78); AST/SGOT 23 U/L (15-37); Albumin 1.7 g/dL (3.4-5.0); Alkaline Phosphatase 83 U/L (45-117); BUN Blood Urea Nitrogen 24 mg/dL (7-18); Bicarbonate 25 mmol/L (21-32); Bilirubin Direct 0.2 mg/dL (0-0.2); Bilirubin Total 0.7 mg/dL (0.2-1.0); Glucose Level 143 mg/dL (74-106); Potassium 2.8 mmol/L (3.5-5.1); Protein, Total 5.1 g/dL (6.4-8.2); Sodium Level 143 mmol/L (136-145)
[2021-12-03] MEDS: VALSARTAN 160 MG TAB PO SCH (08:27)
[2021-12-03] MEDS: FERROUS SULFATE 325 MG TAB PO SCH (08:28)
[2021-12-03] MEDS: AMLODIPINE 5 MG TAB PO SCH (08:28)
[2021-12-03] MEDS: PARoxetine HCL 10 MG TAB PO SCH (08:28)
[2021-12-03] MEDS: BARICITINIB 2 MG TABLET PO SCH (09:00)
[2021-12-03] MEDS: PANTOPRAZOLE 40 MG INJ IVP SCH (09:00)
[2021-12-03] MEDS ORDERED: FUROSEMIDE 40 MG/4 ML VIAL IV SCH (09:00)
--- NOTE | 2021-12-03 09:20 | P.PN ---
Subjective Date of Service: 12/03/21 Primary Care Provider: prison doctor Chief Complaint: Altered mental status coronavirus positive Subjective: No new changes (Patient remains critical. No enteral access. Multiple unsuccessful attemps to place a NG tube. She has hiatal hernia) Physical Examination - Vital Signs Temperature: 96.6 F Blood Pressure: 120/67 Pulse: 93 Respirations: 24 Pulse Ox (%): 93 - Physical Exam General: Confused HEENT: Atraumatic, Normocephalic Respiratory: Diminished Cardiovascular: Regular rate/rhythm, Normal S1 S2 Musculoskeletal: No clubbing, No swelling, No contractures - Studies Microbiology Data (last 24 hrs): 11/28/21 17:35 Blood - Blood Aerobic Blood Culture - Final Staph Epidermidis 11/28/21 17:35 Blood - Blood Blood Culture Gram Stain - Final 11/28/21 17:35 Blood - Blood Anaerobic Blood Culture - Final Staph Epidermidis 11/28/21 17:35 Blood - Blood Gram Stain - Final 11/28/21 17:20 Blood - Blood Aerobic Blood Culture - Final Staph Epidermidis 11/28/21 17:20 Blood - Blood Blood Culture Gram Stain - Final 11/28/21 17:20 Blood - Blood Anaerobic Blood Culture - Final Staph Epidermidis 11/28/21 17:20 Blood - Blood Gram Stain - Final Assessment And Plan - Current Problems (Diagnosis) (1) Hypokalemia Current Visit: Yes Status: Acute (2) Generalized weakness Current Visit: Yes Status: Acute (3) Coronavirus infection Current Visit: Yes Status: Acute (4) Hypertension Onset Date: 10/25/16 Current Visit: No Status: Acute (5) Hyponatremia Onset Date: 11/01/14 Current Visit: No Status: Acute (6) UTI (urinary tract infection) Onset Date: 03/18/17 Current Visit: No Status: Acute Physician Review Additional Text: Assessment Patient is a 76-year-old female senior living resident, bedbound at baseline. She has a history of hypertension and inclusion body myositis. She was admitted for evaluation of fever and worsening mental status. She tested positive for COVID-19 a few days before her admission. She was maintaining good oxygen saturation on room air but unfortunately progressed rapidly on 12/01 when she developed respiratory failure. She is currently on HFNC with FiO2 of 100%. Acute hypoxemic respiratory failure Septic shock Multi-focal PNA and COVID-19 pneumonia Staph epi bacteremia - TTE w/o signs of vegetations Acute metabolic encephalopathy Acute systolic CHF- LVEF of 35 to 40% UTI Hypokalemia Generalized weakness Inclusion body myositis Hypertension Plan Continue HFNC and wean down as tolerated Continue levophed Vancomycin for persistent staph epi bacteremia. Cefepime to cover E coli UTI Follow Repeat blood cultures Continue systemic steroids VTE and GI ppx on board Add IV PRN labetalol for uncontrolled BP We're currently w/o enteral access. Failed x NGT placement. Hiatal hernia. ? RD will consider TPN
[2021-12-03] MEDS: CEFEPIME 2 GM in NA CHLORIDE 0.9% 100 ML IV SCH (09:54)
--- NOTE | 2021-12-03 10:47 | P.PN ---
Subjective Date of Service: 12/03/21 Primary Care Provider: custodial doctor Chief Complaint: Altered mental status coronavirus positive Patient is bacteremic patient is bacteremic staph epidermidis isolated continue with vancomycin/white count is improved White count is improving unable to in sert a Dobbhoff for tube feeds/patient is hypokalemic patient is hypokalemic Review of Systems is unable to be obtained Physical Examination - Vital Signs Temperature: 96.6 F Blood Pressure: 125/67 Pulse: 95 Respirations: 24 Pulse Ox (%): 97 - Physical Exam General: Other (Very minimally responsive) - Studies Microbiology Data (last 24 hrs): 11/28/21 17:35 Blood - Blood Aerobic Blood Culture - Final Staph Epidermidis 11/28/21 17:35 Blood - Blood Blood Culture Gram Stain - Final 11/28/21 17:35 Blood - Blood Anaerobic Blood Culture - Final Staph Epidermidis 11/28/21 17:35 Blood - Blood Gram Stain - Final 11/28/21 17:20 Blood - Blood Aerobic Blood Culture - Final Staph Epidermidis 11/28/21 17:20 Blood - Blood Blood Culture Gram Stain - Final 11/28/21 17:20 Blood - Blood Anaerobic Blood Culture - Final Staph Epidermidis 11/28/21 17:20 Blood - Blood Gram Stain - Final Assessment And Plan - Current Problems (Diagnosis) (1) Coronavirus infection Current Visit: Yes Status: Acute Plan: Patient is requiring more oxygen chest x-ray worsened and she is currently on high concentrations of FiO2/and is on high flow oxygen/patient now has patient has right lower lobe consolidation on the chest x-ray DC IV steroids/we will try reinserting the will try reinserting the Dobbhoff tube (2) Bacteremia Current Visit: Yes Status: Acute Plan: Blood cultures are positive for staph epidermidis continue with IV vancomycin
[2021-12-03] MEDS ORDERED: NA CHLORIDE 0.9% 500 ML IV ONE (12:02)
[2021-12-03 14:08] LABS: Arterial Blood Carboxyhemoglob 0.5 % (0-1.5); Blood Gas Oxyhemoglobin 92.8 % (94-97); Blood O2 Saturation 94.6 % (92-98.5)
[2021-12-03 14:50] LABS: NT PRO-BNP 28700
[2021-12-03 19:08] LABS: Potassium 4.2 mmol/L (3.5-5.1); Sodium Level 146 mmol/L (136-145)
[2021-12-03 19:14] LABS: BUN Blood Urea Nitrogen 29 mg/dL (7-18); Bicarbonate 24 mmol/L (21-32); Glucose Level 135 mg/dL (74-106)
[2021-12-03] MEDS: THIAMINE 200 MG/2 ML INJ IVP SCH (20:27)
[2021-12-04] MEDS ORDERED: NA CHLORIDE 0.9% 500 ML IV ONE (00:27)
[2021-12-04] MEDS: D5W 1,000 ML IV SCH ×2 (00:53→15:57)
[2021-12-04] MEDS: MORPHINE 2 MG/ML SYR IV PRN ×3 (01:36→23:10)
[2021-12-04] MEDS: CEFEPIME 2 GM in NA CHLORIDE 0.9% 100 ML IV SCH ×3 (02:01→16:16)
[2021-12-04 07:14] LABS: Absolute Lymphocytes (CBC) 0.5 K/uL (0.7-4.9); Hematocrit 30.9 % (36.0-45.0); Lymphocytes % 1.6 % (15.3-44.8); MPV 8.9 fL (7.6-11.3); RBC Red Blood Cell Count 3.48 M/uL (3.86-4.86)
[2021-12-04 07:43] LABS: ALT/SGPT 21 U/L (12-78); AST/SGOT 17 U/L (15-37); Albumin 1.6 g/dL (3.4-5.0); Alkaline Phosphatase 84 U/L (45-117); BUN Blood Urea Nitrogen 30 mg/dL (7-18); Bicarbonate 23 mmol/L (21-32); Bilirubin Direct 0.2 mg/dL (0-0.2); Bilirubin Total 0.6 mg/dL (0.2-1.0); Glucose Level 144 mg/dL (74-106); Protein, Total 5.1 g/dL (6.4-8.2); Sodium Level 147 mmol/L (136-145)
[2021-12-04 08:07] LABS: Blood Morphology Comment NOT SEEN (NOT SEEN); Platelet Estimate ADEQ; Platelets, Giant PRESENT; Toxic Granulation 2+
[2021-12-04] MEDS: ENOXAPARIN 40 MG/0.4 ML SQ SCH (08:31)
[2021-12-04] MEDS: PANTOPRAZOLE 40 MG INJ IVP SCH (08:31)
[2021-12-04] MEDS: THIAMINE 200 MG/2 ML INJ IVP SCH ×2 (08:31→20:34)
[2021-12-04] MEDS: FERROUS SULFATE 325 MG TAB PO SCH (08:33)
[2021-12-04] MEDS: PARoxetine HCL 10 MG TAB PO SCH (08:34)
[2021-12-04 10:32] LABS: Arterial Blood Carboxyhemoglob 0.6 % (0-1.5); Blood Gas Oxyhemoglobin 91.8 % (94-97); Blood O2 Saturation 93.6 % (92-98.5)
[2021-12-04] MEDS: NOREPINEPHRINE 4 MG in D5W 250 ML IV SCH (12:40)
[2021-12-04 14:23] LABS: NT PRO-BNP 16700
[2021-12-04] MEDS ORDERED: FUROSEMIDE 20 MG/ 2ML VIAL IV ONE (16:00)
[2021-12-04] MEDS ORDERED: ALBUMIN HUMAN 25% 100 ML IV ONE (16:00)
[2021-12-04] MEDS ORDERED: METHYLPREDNISOLONE 125 MG INJ IV ONE (17:00)
--- NOTE | 2021-12-04 17:51 | P.PN ---
Subjective Date of Service: 12/04/21 Had a long talk with family and they still want everything done. Patient is hypoxic and tachypneic. Patient has congestive heart failure. Patient with bilateral infiltrates. Prognosis is very poor. She is not really tolerating BiPAP well. Spoke with family regarding mechanical ventilation and they are agreeable if her condition worsens. Pulmonary monitoring patient. Review of Systems 10-point ROS is otherwise unremarkable Physical Examination - Vital Signs Temperature: 98.6 F Blood Pressure: 86/40 Pulse: 120 Respirations: 35 Pulse Ox (%): 96 - Physical Exam General: Alert, In no apparent distress HEENT: Atraumatic, PERRLA, EOMI Neck: Supple, JVD not distended Respiratory: Clear to auscultation bilaterally, Normal air movement Cardiovascular: Regular rate/rhythm, Normal S1 S2 Gastrointestinal: Normal bowel sounds, No tenderness Musculoskeletal: No tenderness Integumentary: No rashes Neurological: Normal speech, Normal tone, Normal affect Lymphatics: No axilla or inguinal lymphadenopathy - Studies Medications List Reviewed: Yes Assessment & Plan - Problems (Diagnosis) (1) Bilateral pneumonia Current Visit: Yes Status: Acute (2) COVID-19 virus infection Current Visit: Yes Status: Acute (3) Systolic congestive heart failure Current Visit: Yes Status: Acute Qualifiers: Heart failure chronicity: acute Qualified Code(s): I50.21 - Acute systolic (congestive) heart failure (4) Bacteremia Current Visit: Yes Status: Acute (5) Hypertension Onset Date: 10/25/16 Current Visit: No Status: Acute (6) Weakness Onset Date: 11/01/14 Current Visit: No Status: Acute (7) Staphylococcus epidermidis bacteremia Current Visit: Yes Status: Acute (8) Staphylococcus aureus bacteremia Current Visit: Yes Status: Acute - Plan Plan: 1. Continue with IV antibiotics 2. Blood cultures positive for staph aureus and staph epidermidis 3. Repeat chest x-ray 4. Prognosis is poor but at this time family wants everything done 5. Pulmonary consultation obtained and they are monitoring BiPAP. 6. Continue with nebs as needed 7. O2 per protocol per pulmonary 8. heplock IV 9. Repeat labs including CBC and renal function in a.m. 10. GI and DVT prophylaxis Discharge Plan: Home Plan to discharge in: Greater than 2 days - Advance Directives Does patient have a Living Will: No Does patient have a Durable POA for Healthcare: No - Code Status/Comfort Care Code Status Assessed: Yes Code Status: Full Code Critical Care: No Time Spent Managing PTS Care (In Minutes): 35
[2021-12-04] MEDS: VANCOMYCIN 1.5 GM in NA CHLORIDE 0.9% 500 ML IVPB SCH (23:04)
[2021-12-05] MEDS: CEFEPIME 2 GM in NA CHLORIDE 0.9% 100 ML IV SCH ×4 (01:54→17:37)
[2021-12-05] MEDS: LORazepam 2 MG/ML VIAL IV PRN (01:59)
[2021-12-05 05:05] LABS: Absolute Lymphocytes (CBC) 0.4 K/uL (0.7-4.9); Hematocrit 27.5 % (36.0-45.0); Lymphocytes % 1.4 % (15.3-44.8); MPV 8.8 fL (7.6-11.3); RBC Red Blood Cell Count 3.08 M/uL (3.86-4.86)
[2021-12-05 05:33] LABS: ALT/SGPT 17 U/L (12-78); AST/SGOT 25 U/L (15-37); Alkaline Phosphatase 71 U/L (45-117); BUN Blood Urea Nitrogen 27 mg/dL (7-18); Bicarbonate 23 mmol/L (21-32); Bilirubin Direct 0.4 mg/dL (0-0.2); Bilirubin Total 0.9 mg/dL (0.2-1.0); Glucose Level 91 mg/dL (74-106); Protein, Total 5.1 g/dL (6.4-8.2); Sodium Level 148 mmol/L (136-145)
[2021-12-05] MEDS: MORPHINE 2 MG/ML SYR IV PRN (05:48)
[2021-12-05] MEDS: KCL 20 MEQ/100 mL IVPB 20 MEQ/100 ML BAG IV SCH ×4 (06:31→23:03)
--- NOTE | 2021-12-05 08:01 | RAD REPORT ---
EXAM DESCRIPTION: Mal Single View12/05/2021 5:48 am CLINICAL HISTORY: Chest pain COMPARISON: November 28, 2021 FINDINGS: Moderate worsening in diffuse extensive bilateral pulmonary opacities. Heart remains enlar ged IMPRESSION: Moderate worsening in extensive bilateral pulmonary opacities likely pneumonia
[2021-12-05] MEDS ORDERED: ADENOSINE 6 MG/ 2ML VIAL IV ONE (08:22)
[2021-12-05] MEDS: THIAMINE 200 MG/2 ML INJ IVP SCH ×2 (08:45→20:26)
[2021-12-05] MEDS: ENOXAPARIN 40 MG/0.4 ML SQ SCH (08:45)
[2021-12-05] MEDS: PANTOPRAZOLE 40 MG INJ IVP SCH (08:45)
[2021-12-05] MEDS: FERROUS SULFATE 325 MG TAB PO SCH (08:46)
[2021-12-05] MEDS: PARoxetine HCL 10 MG TAB PO SCH (08:47)
--- NOTE | 2021-12-05 09:02 | EKG ---
Test Date: 2021-12-01 Test Time: 13:00:38 Clay Dry Press Helper: IR MEASUREMENT RESULTS: Intervals: Rate: 132 [place]: 140 QRSD: 74 QT: 302 QTc: 447 [place]: P: 91 [place]: 140 QRS: -61 T: 97 INTERPRETIVE STATEMENTS: Sinus tachycardia Left axis deviation Septal infarct, age undetermined Abnormal ECG Compared to ECG 12/01/2021 00:05:53 Atrial premature complex(es) no longer present Ventricular premature complex(es) no longer present Myocardial infarct finding still present Electronically Signed On 12-05-21 08:58:05 DENTAL HYGIENE PROFESSOR by Luis Antonio Reeder
--- NOTE | 2021-12-05 09:02 | EKG ---
Test Date: 2021-12-01 Test Time: 17:58:52 Karate Teacher: IR MEASUREMENT RESULTS: Intervals: Rate: 141 [place]: 144 QRSD: 68 QT: 268 QTc: 410 [place]: P: 83 RI: 144 QRS: -64 T: 90 INTERPRETIVE STATEMENTS: Sinus tachycardia with premature atrial complexes Left axis deviation Anteroseptal infarct, age undetermined Abnormal ECG Compared to ECG 12/01/2021 13:00:38 Atrial premature complex(es) now present Myocardial infarct finding still present Electronically Signed On 12-05-21 08:58:04 PAGEANT DIRECTOR by Luis Antonio Reeder
[2021-12-05] MEDS ORDERED: propofoL 200 MG/20 ML VIAL IV ONE (10:09)
[2021-12-05] MEDS ORDERED: ONDANSETRON 4 MG/2 ML VIAL ONE (10:09)
[2021-12-05] MEDS ORDERED: LIDOCAINE 2% MPF 5 ML VIAL ONE (10:09)
[2021-12-05] MEDS ORDERED: ROCURONIUM 50 MG/5 ML VIAL IV ONE (10:11)
[2021-12-05] MEDS: Ringers Lactate 1,000 ML IV ONE (10:35)
--- NOTE | 2021-12-05 10:52 | CON ---
Date of Consultation: 12/04/2021 Brief History Of Present Illness: The patient is a 76-year-old female, who is bed-bound fr a [facility] with a history of hypertension, inclusion body myositis and COVID positive pneumoni a, who presents to the hospital on 11/28/2021 with COVID exacerbation. She has been having significa nt respiratory insufficiency and difficult with nutrition. As such, I am requested to place a nasoje junal feeding tube for temporary feeding access as there was a possibility for recovery of her feedin g status and the patient is in need of parenteral nutrition and we would like to obtain postpyloric f eeding to decrease the chance that the patient has an aspiration episode as she is on positive BiPAP/ CPAP ventilation. Past medical history and information obtained from the chart as the patient is cur rently not responsive to examination and stimulation. She is currently on BiPAP during her examinati on. Past Medical History: Significant for inclusion body myositis, hypertension, anxiety. Past Surgical History: Includes hysterectomy, tonsillectomy, appendectomy. She lives in [facility]. Home Medications: Include Colace, Premarin, Reglan, paroxetine, Zantac, senna, Bactrim, amlodipine, Nexium, ferrous sulfate, Diovan, Nexium. Allergies: TO LEVAQUIN AND PENICILLIN. Family History: Father had heart disease. Mother had myositis. Social History: Negative smoking, alcohol, recreational drug use history. Review of Systems: Ten-point review of systems unable to obtain. Physical Examination: General: At the time of my examination; the patient is currently on BiPAP, nonresponsive. HEENT: Otherwise, mucous membranes are somewhat dry. Neck: Supple without JVD. Chest: Normal expansion and excursion. Respiratory: Diminished bilaterally significantly. Cardiovascular: Regular rate and rhythm. Abdomen: Soft, nontender. No rebound. Neurologic: Unresponsive. Skin: Warm and dry. Vital Signs: She had a BMI of 26.5. Her blood pressure 129/74, heart rate was 106, respiratory rate 40, temperature 96.9, SpO2 was 100% on BiPAP. Laboratory Data: Revealed a white blood cell count of 30, hemoglobin 10.1, hematocrit 30.9, platelet count was 315. Her sodium 147, potassium 4.0, chloride 116, carbon dioxide 23, BUN 30, creatinine 0 .29, glucose is 144. Total bilirubin 0.6, direct component 0.2, AST 17, ALT 21, alkaline phosphatase 84. She had a chest x-ray performed on 12/02 that was officially read as no pneumothorax. Assessment And Plan: This is a 76-year-old female with COVID pneumonia decompensating. I have discu ssed the situation with the patient's daughter. She is her medical decision maker with respect to es ophagogastroduodenoscopy and placement of a nasal postpyloric feeding access tube for temporary postp yloric feeding including, but not limited to bleeding, infection, damage to surrounding tissue, need for further operation and procedures, aspiration, misplacement of the tube, and likely will require i ntubation which may be an irreversible decision with respect to her COVID pneumonia and increase her overall mortality; however, given her nutritional status, her family would rather proceed with tempor antony feeding access through the nasoduodenal feeding tube and PEG tube or other intravenous feeding ac cess. We discussed the risks, benefits, and alternatives of the above stated plan. The patient's fa dillon agrees to proceed as indicated. Thank you for this interesting consult. LENO/JAMES Voice ID: [id number] Report ID: [id number]
[2021-12-05] MEDS ORDERED: MIDAZOLAM HCL 2 MG/2 ML INJ IV PRN ×2 (11:44→12:02)
[2021-12-05] MEDS ORDERED: FENTANYL CITR 100 MCG/2 ML IV PRN ×2 (11:44→12:02)
[2021-12-05] MEDS ORDERED: LORazepam 2 MG/ML VIAL IV PRN ×2 (11:44→12:02)
[2021-12-05] MEDS ORDERED: HALOPERIDOL LACT 5 MG/ML INJ IV PRN ×2 (11:44→12:02)
--- NOTE | 2021-12-05 11:56 | P.PN ---
Subjective Date of Service: 12/05/21 Primary Care Provider: detention doctor Chief Complaint: Respiratory failure patient intubated Patient was intubated today prior to inserting a Dobbhoff tube currently stable transferred back to the ICU Review of Systems is unable to be obtained Physical Examination - Vital Signs Temperature: 97.4 F Blood Pressure: 110/67 Pulse: 138 Respirations: 24 Pulse Ox (%): 100 - Physical Exam General: Unresponsive Respiratory: Clear to auscultation bilaterally, Diminished - Studies Medications List Reviewed: Yes Assessment And Plan - Current Problems (Diagnosis) (1) Bacteremia Current Visit: Yes Status: Acute Plan: MRSa bactermia (2) Respiratory failure Current Visit: Yes Status: Acute Plan: Patient is now on ventilator has a Dobbhoff tube will plan to start feeding and water feeds/ on AC/ Stabel for transfer to LTAC/ hypernatremia /CXRy severe COVID pneumonia/ prog poor Qualifiers: Chronicity: acute Physician Review Additional Text: Assessment Patient is a 76-year-old female long-term resident, bedbound at baseline. She has a history of hypertension and inclusion body myositis. She was admitted for evaluation of fever and worsening mental status. She tested positive for COVID-19 a few days before her admission. She was maintaining good oxygen saturation on room air but unfortunately progressed rapidly on 12/01 when she developed respiratory failure. She is currently on HFNC with FiO2 of 100%. Acute hypoxemic respiratory failure Septic shock Multi-focal PNA and COVID-19 pneumonia Staph epi bacteremia - TTE w/o signs of vegetations Acute metabolic encephalopathy Acute systolic CHF- LVEF of 35 to 40% UTI Hypokalemia Generalized weakness Inclusion body myositis Hypertension Plan Continue HFNC and wean down as tolerated Continue levophed Vancomycin for persistent staph epi bacteremia. Cefepime to cover E coli UTI Follow Repeat blood cultures Continue systemic steroids VTE and GI ppx on board Add IV PRN labetalol for uncontrolled BP We're currently w/o enteral access. Failed x NGT placement. Hiatal hernia. ? RD will consider TPN
[2021-12-05] MEDS: propofoL 1,000 MG/100 ML VIAL IV PRN ×2 (12:42→23:05)
--- NOTE | 2021-12-05 13:09 | RAD REPORT ---
EXAM DESCRIPTION: RAD - Chest Single View - 12/05/2021 12:54 pm CLINICAL HISTORY: Respiratory failure patient intubated, Dobhoff tube placement COMPARISON: Portable chest December 05 TECHNIQUE: AP portable chest image was obtained 12/05/2021 12:54 pm . FINDINGS: Extensive lung parenchymal changes are stable over the short interval since the comparison study. Endotracheal tube has been placed. Tip is top of the aortic arch 5 cm above the praveen. This is adequate positioning. Dobhoff feeding tube has been placed. The tubing extends well below the diaphragm. The tip is not vis ualized. Cardiomediastinal silhouette is stable. No pneumothorax. Delete select IMPRESSION: Endotracheal tube tip is top of the aortic arch 5 cm above the praveen. This is adequate positioning. Dobhoff feeding tube has been placed. Tip is not visualized but the tubing extends well below the emma phragm. KUB image could be obtained if exact positioning of the tube tip is needed. No change to the extensive lung parenchymal disease since earlier examination.
[2021-12-05] MEDS: D5W 1,000 ML IV SCH (13:57)
[2021-12-05] MEDS ORDERED: AMIODARONE HCL 75 MG in D5W 100 ML IV STA (17:38)
[2021-12-05] MEDS: AMIODARONE HCL 900 MG in Dextrose 5%-Water 482 ML IV SCH (17:57)
[2021-12-05] MEDS: FAMOTIDINE 20 MG/2 ML VIAL IV SCH (20:26)
[2021-12-05] MEDS ORDERED: FAMOTIDINE 20 MG/2 ML VIAL IV SCH ×2 (21:00)
[2021-12-05] MEDS: VANCOMYCIN 1.5 GM in NA CHLORIDE 0.9% 500 ML IVPB SCH (23:00)
[2021-12-06] MEDS: CEFEPIME 2 GM in NA CHLORIDE 0.9% 100 ML IV SCH ×3 (00:36→16:39)
[2021-12-06] MEDS: propofoL 1,000 MG/100 ML VIAL IV PRN ×3 (05:57→22:52)
[2021-12-06 06:20] LABS: Albumin 1.5 g/dL (3.4-5.0); Bilirubin Direct 0.4 mg/dL (0-0.2); Bilirubin Total 0.8 mg/dL (0.2-1.0); Protein, Total 4.7 g/dL (6.4-8.2)
[2021-12-06 06:21] LABS: Arterial Blood Carboxyhemoglob 1.1 % (0-1.5); Blood Gas Oxyhemoglobin 94.7 % (94-97); Blood O2 Saturation 96.6 % (92-98.5)
--- NOTE | 2021-12-06 07:32 | RAD REPORT ---
EXAM DESCRIPTION: RAD - Chest Single View - 12/06/2021 6:00 am CLINICAL HISTORY: Resp failure COMPARISON: Portable December 05 TECHNIQUE: AP portable chest image was obtained 12/06/2021 6:00 am . FINDINGS: The endotracheal tube is positioned between the clavicle heads. This is approximately 6 cm above the praveen. This is stable positioning and is the superior most acceptable position. Feeding t ube extends below the diaphragm. The tip is not visible. Dense airspace opacification is present in the right upper lobe and the right lung base. Significant but less prominent mid left lung field and lower left lung field airspace disease present. No measura ble improvement has occurred since the prior day study. Heart size is prominent but stable. Central vasculature is mostly obscured by the airspace disease. N o pneumothorax or enlarging pleural effusion. IMPRESSION: Stable but extensive, right greater than left, airspace edema or infiltrate. ET tube and feeding tube stable in position.
[2021-12-06] MEDS: D5W 1,000 ML IV SCH (07:49)
[2021-12-06 09:42] LABS: Absolute Lymphocytes (CBC) 0.8 K/uL (0.7-4.9); Hematocrit 23.2 % (36.0-45.0); Lymphocytes % 3.6 % (15.3-44.8); MPV 9.2 fL (7.6-11.3); RBC Red Blood Cell Count 2.53 M/uL (3.86-4.86)
[2021-12-06] MEDS: PANTOPRAZOLE 40 MG INJ IVP SCH (10:04)
[2021-12-06] MEDS: THIAMINE 200 MG/2 ML INJ IVP SCH ×2 (10:04→20:10)
[2021-12-06] MEDS: FAMOTIDINE 20 MG/2 ML VIAL IV SCH ×2 (10:04→20:10)
[2021-12-06 10:05] LABS: BUN Blood Urea Nitrogen 26 mg/dL (7-18); Bicarbonate 23 mmol/L (21-32); Glucose Level 177 mg/dL (74-106); Sodium Level 146 mmol/L (136-145)
[2021-12-06] MEDS: FERROUS SULFATE 325 MG TAB PO SCH (10:05)
[2021-12-06] MEDS: ENOXAPARIN 40 MG/0.4 ML SQ SCH (10:05)
[2021-12-06] MEDS: PARoxetine HCL 10 MG TAB PO SCH (10:05)
[2021-12-06 10:07] LABS: Potassium 2.8 mmol/L (3.5-5.1)
--- NOTE | 2021-12-06 10:27 | P.PN ---
Date of Service: 12/05/21 Subjective Patient had a Dobbhoff placed and required intubation. Patient remained in atrial fibrillation. Started on amiodarone drip. Consulted cardiology. Continue with broad-spectrum antibiotic coverage. Will reassess placement Review of Systems 10-point ROS is otherwise unremarkable Physical Examination - Vital Signs Reviewed - Physical Exam General: Intubated and sedated HEENT: Intubated and sedated Neck: Supple, JVD not distended Respiratory: Basilar crackles and rhonchi Cardiovascular: Regular rate/rhythm, Normal S1 S2 Gastrointestinal: Normal bowel sounds, No tenderness Musculoskeletal: No tenderness Integumentary: No rashes Neurological: Normal speech, Normal tone, Normal affect Assessment & Plan - Problems (Diagnosis) (1) Bilateral pneumonia Current Visit: Yes Status: Acute (2) COVID-19 virus infection Current Visit: Yes Status: Acute (3) Systolic congestive heart failure/atrial fibrillation with rapid ventricular response Current Visit: Yes Status: Acute Qualifiers: Heart failure chronicity: acute Qualified Code(s): I50.21 - Acute systolic (congestive) heart failure (4) Bacteremia Current Visit: Yes Status: Acute (5) Hypertension Onset Date: 10/25/16 Current Visit: No Status: Acute (6) Weakness Onset Date: 11/01/14 Current Visit: No Status: Acute (7) Staphylococcus epidermidis bacteremia Current Visit: Yes Status: Acute (8) Staphylococcus aureus bacteremia Current Visit: Yes Status: Acute - Plan Continue with plan of care as mentioned below: 1. Continue with IV antibiotics; Blood cultures positive for staph aureus and staph epidermidis 2. Continue with amiodarone drip 3. Mechanical ventilation management per pulmonary; repeat chest x-ray 4. Prognosis is poor but at this time family wants everything done 5. Pulmonary consultation obtained and they are monitoring BiPAP. 6. Continue with nebs as needed 7. O2 per protocol per pulmonary 8. Hep-Lock IV; may need to gently diurese. Dobbhoff placement for tube feedings 9. Repeat labs including CBC and renal function in a.m. 10. GI and DVT prophylaxis Discharge Plan: Home Plan to discharge in: Greater than 2 days - Advance Directives Does patient have a Living Will: No Does patient have a Durable POA for Healthcare: No - Code Status/Comfort Care Code Status Assessed: Yes Code Status: Full Code Critical Care: No Time Spent Managing PTS Care (In Minutes): 35
[2021-12-06] MEDS ORDERED: ALBUMIN HUMAN 25% 100 ML IV ONE ×2 (10:28→19:00)
[2021-12-06] MEDS: KCL 20 MEQ/100 mL IVPB 20 MEQ/100 ML BAG IV SCH ×3 (10:45→14:30)
--- NOTE | 2021-12-06 12:34 | P.PN ---
Subjective Date of Service: 12/06/21 Primary Care Provider: FDC doctor Chief Complaint: Respiratory failure patient intubated No change in patient's no change in patient's condition patient has diffuse pneumonia most likely Covid/hyponatremia hyponatremia is improving/hypokalemia Review of Systems is unable to be obtained Physical Examination - Vital Signs Temperature: 98.6 F Blood Pressure: 86/40 Pulse: 120 Respirations: 35 Pulse Ox (%): 96 - Physical Exam General: Unresponsive Respiratory: Diminished - Studies Medications List Reviewed: Yes Assessment And Plan - Current Problems (Diagnosis) (1) Bacteremia Current Visit: Yes Status: Acute Plan: MRSa bactermia/patient is on vancomycin white count is declining (2) Respiratory failure Current Visit: Yes Status: Acute Plan: Respiratory failure respiratory failure prognosis very poor diffuse bilateral pneumonia also has MRSA bacteremia/cultures are pending/30% FiO2/hyponatremia is improving continue with water flushes Qualifiers: Chronicity: acute Physician Review Additional Text: Assessment Patient is a 76-year-old female senior living resident, bedbound at baseline. She has a history of hypertension and inclusion body myositis. She was admitted for evaluation of fever and worsening mental status. She tested positive for COVID-19 a few days before her admission. She was maintaining good oxygen saturation on room air but unfortunately progressed rapidly on 12/01 when she developed respiratory failure. She is currently on HFNC with FiO2 of 100%. Acute hypoxemic respiratory failure Septic shock Multi-focal PNA and COVID-19 pneumonia Staph epi bacteremia - TTE w/o signs of vegetations Acute metabolic encephalopathy Acute systolic CHF- LVEF of 35 to 40% UTI Hypokalemia Generalized weakness Inclusion body myositis Hypertension Plan Continue HFNC and wean down as tolerated Continue levophed Vancomycin for persistent staph epi bacteremia. Cefepime to cover E coli UTI Follow Repeat blood cultures Continue systemic steroids VTE and GI ppx on board Add IV PRN labetalol for uncontrolled BP We're currently w/o enteral access. Failed x NGT placement. Hiatal hernia. ? RD will consider TPN
[2021-12-06] MEDS: AMIODARONE HCL 900 MG in Dextrose 5%-Water 482 ML IV SCH (15:36)
--- NOTE | 2021-12-06 18:38 | P.PN ---
Date of Service: 12/06/21 Subjective I had a long discussion with patient's daughter, Dione Stokes. She states that her mother is the last person in her family that is close to her. I explained to her that her mother's condition is severe, and it will be very difficult for her to survive this event. We went over her x-ray results and her blood work. I spoke with her regarding her cardiac status. She understands that she is also septic. She does not want her mother to suffer but at the same time she did not advise me to make her a DNR even though we discussed this numerous times. She wants her mother to survive this event, but she is understanding that this is very unlikely. Patient's heart rate is better controlled on the amiodarone drip. Patient is back in sinus rhythm. Continue on antibiotics. May need to add Levophed if blood pressure remains labile. Need to get some volume off of her as well. Review of Systems 10-point ROS is otherwise unremarkable Physical Examination - Vital Signs Reviewed - Physical Exam General: Intubated and sedated HEENT: Intubated and sedated Neck: Supple, JVD not distended Respiratory: Basilar crackles and rhonchi Cardiovascular: irr, irreg Gastrointestinal: Normal bowel sounds, No tenderness Musculoskeletal: No tenderness Integumentary: No rashes Neurological: Normal speech, Normal tone, Normal affect Assessment & Plan - Problems (Diagnosis) (1) Bilateral pneumonia Current Visit: Yes Status: Acute (2) COVID-19 virus infection Current Visit: Yes Status: Acute (3) Systolic congestive heart failure/atrial fibrillation with rapid ventricular response Current Visit: Yes Status: Acute Qualifiers: Heart failure chronicity: acute Qualified Code(s): I50.21 - Acute systolic (congestive) heart failure (4) Bacteremia Current Visit: Yes Status: Acute (5) Hypertension Onset Date: 10/25/16 Current Visit: No Status: Acute (6) Weakness Onset Date: 11/01/14 Current Visit: No Status: Acute (7) Staphylococcus epidermidis bacteremia Current Visit: Yes Status: Acute (8) Staphylococcus aureus bacteremia Current Visit: Yes Status: Acute - Plan Continue with plan of care as mentioned below: 1. Continue with IV antibiotics; Blood cultures positive for staph aureus and staph epidermidis 2. Continue with amiodarone drip 3. Mechanical ventilation management per pulmonary; repeat chest x-ray 4. Prognosis is poor but at this time family wants everything done 5. Pulmonary consultation obtained and they are monitoring BiPAP. 6. Continue with nebs as needed 7. O2 per protocol per pulmonary 8. Hep-Lock IV; may need to gently diurese. Dobbhoff placement for tube feedings 9. Repeat labs 10. GI and DVT prophylaxis Discharge Plan: Home Plan to discharge in: Greater than 2 days - Advance Directives Does patient have a Living Will: No Does patient have a Durable POA for Healthcare: No - Code Status/Comfort Care Code Status Assessed: Yes Code Status: Full Code Critical Care: No Time Spent Managing PTS Care (In Minutes): 35
[2021-12-06] MEDS: VANCOMYCIN 1.5 GM in NA CHLORIDE 0.9% 500 ML IVPB SCH (23:00)
[2021-12-07] MEDS: CEFEPIME 2 GM in NA CHLORIDE 0.9% 100 ML IV SCH ×2 (00:29→09:07)
[2021-12-07 05:33] LABS: Arterial Blood Carboxyhemoglob 1.7 % (0-1.5); Blood Gas Oxyhemoglobin 89.7 % (94-97); Blood O2 Saturation 92.7 % (92-98.5)
[2021-12-07 05:41] LABS: Absolute Lymphocytes (CBC) 1.2 K/uL (0.7-4.9); Lymphocytes % 6.3 % (15.3-44.8); MPV 9.3 fL (7.6-11.3); RBC Red Blood Cell Count 2.17 M/uL (3.86-4.86)
[2021-12-07] MEDS: propofoL 1,000 MG/100 ML VIAL IV PRN ×3 (05:43→21:35)
[2021-12-07 05:54] LABS: Hematocrit 20.3 % (36.0-45.0)
[2021-12-07 08:55] LABS: ALT/SGPT 20 U/L (12-78); AST/SGOT 51 U/L (15-37); Albumin 1.9 g/dL (3.4-5.0); Alkaline Phosphatase 147 U/L (45-117); BUN Blood Urea Nitrogen 23 mg/dL (7-18); Bicarbonate 20 mmol/L (21-32); Bilirubin Direct 0.8 mg/dL (0-0.2); Bilirubin Total 1.3 mg/dL (0.2-1.0); Glucose Level 153 mg/dL (74-106); Protein, Total 4.8 g/dL (6.4-8.2); Sodium Level 142 mmol/L (136-145)
[2021-12-07] MEDS: FERROUS SULFATE 325 MG TAB PO SCH (09:04)
[2021-12-07] MEDS: PARoxetine HCL 10 MG TAB PO SCH (09:06)
[2021-12-07] MEDS: FAMOTIDINE 20 MG/2 ML VIAL IV SCH (09:07)
[2021-12-07] MEDS: THIAMINE 200 MG/2 ML INJ IVP SCH ×2 (09:07→20:38)
[2021-12-07] MEDS: PANTOPRAZOLE 40 MG INJ IVP SCH (09:07)
[2021-12-07] MEDS: ENOXAPARIN 40 MG/0.4 ML SQ SCH (09:07)
[2021-12-07 09:11] LABS: Phosphorus < 0.1 mg/dL (2.5-4.9)
--- NOTE | 2021-12-07 09:15 | P.PN ---
Date of Service: 12/07/21 Subjective Updated the patient's daughter on patient requiring blood transfusion. Prognosis is poor. Continue on mechanical ventilation support. Significant infiltrates on the chest x-ray. Prognosis is very poor. Family wanting to continue with full code. Continue with current plan of care at this time. Review of Systems 10-point ROS is otherwise unremarkable Physical Examination - Vital Signs Reviewed - Physical Exam General: Intubated and sedated HEENT: ET tube and dobhoff in place Neck: Supple, JVD not distended Respiratory: Basilar crackles and rhonchi Cardiovascular: irr, irreg Gastrointestinal: Normal bowel sounds, No tenderness Musculoskeletal: No tenderness Integumentary: No rashes Neurological: sedated Assessment & Plan - Problems (Diagnosis) (1) Bilateral pneumonia Current Visit: Yes Status: Acute (2) COVID-19 virus infection Current Visit: Yes Status: Acute (3) Systolic congestive heart failure/atrial fibrillation with rapid ventricular response Current Visit: Yes Status: Acute Qualifiers: Heart failure chronicity: acute Qualified Code(s): I50.21 - Acute systolic (congestive) heart failure (4) Bacteremia Current Visit: Yes Status: Acute (5) Hypertension Onset Date: 10/25/16 Current Visit: No Status: Acute (6) Weakness Onset Date: 11/01/14 Current Visit: No Status: Acute (7) Staphylococcus epidermidis bacteremia Current Visit: Yes Status: Acute (8) Staphylococcus aureus bacteremia Current Visit: Yes Status: Acute - Plan Continue with plan of care as mentioned below: 1. Continue with IV antibiotics; Blood cultures positive for staph aureus and staph epidermidis; procalcitonin elevated 2. Change amiodarone to Dobhoff 3. Mechanical ventilation management per pulmonary; repeat chest x-ray 4. Prognosis is poor but at this time family wants everything done 5. Pulmonary consultation obtained and they are monitoring mechanical ventilation 6. Continue with nebs as needed 7. O2 per protocol per pulmonary 8. Hep-Lock IV; Dobbhoff placement for tube feedings 9. H&H pending 10. GI and DVT prophylaxis Discharge Plan: Home Plan to discharge in: Greater than 2 days - Advance Directives Does patient have a Living Will: No Does patient have a Durable POA for Healthcare: No - Code Status/Comfort Care Code Status Assessed: Yes Code Status: Full Code Critical Care: yes Time Spent Managing PTS Care (In Minutes): 35
[2021-12-07 09:18] LABS: Potassium 2.9 mmol/L (3.5-5.1)
--- NOTE | 2021-12-07 09:28 | RAD REPORT ---
EXAM DESCRIPTION: RAD - Chest Single View - 12/07/2021 5:59 am CLINICAL HISTORY: Resp failure Chest pain. COMPARISON: Chest Single View dated 12/06/2021; Chest Single View dated 12/05/2021; Chest Single View da winsome 12/05/2021; Abdomen 1 View (KUB) dated 12/02/2021 FINDINGS: Portable technique limits examination quality. Tip of the endotracheal tube is at the level of the superior aortic arch. Enteric tube descends in th e stomach. Extensive bilateral pulmonary opacities remain present, however are mildly improved on the right. The heart is upper limit of normal in size. IMPRESSION: Mild improvement in right lung aeration is seen since comparative study.
[2021-12-07] MEDS ORDERED: POTASSIUM PHOS 30 MM in NA CHLORIDE 0.9% 500 ML IV ONE (10:00)
[2021-12-07] MEDS ORDERED: KCL 20 MEQ/100 mL IVPB 20 MEQ/100 ML BAG IV SCH ×2 (10:00)
[2021-12-07 10:19] LABS: NT PRO-BNP 32671 pg/mL (<450)
[2021-12-07 11:37] LABS: Folic Acid, (Folate) 3.5 ng/mL (3.1-17.5); Thyroid Stimulating Hormone 0.686 uIU/mL (0.360-3.740)
--- NOTE | 2021-12-07 11:38 | P.PN ---
Subjective Date of Service: 12/07/21 Primary Care Provider: care home doctor Chief Complaint: Respiratory failure patient intubated Patient is not doing well not doing well severe bilateral pneumonia Review of Systems is unable to be obtained Physical Examination - Vital Signs Temperature: 96.7 F Blood Pressure: 111/56 Pulse: 84 Respirations: 28 Pulse Ox (%): 95 - Physical Exam General: Unresponsive Respiratory: Crackles/rales Cardiovascular: No edema, Regular rate/rhythm - Studies Medications List Reviewed: Yes Assessment And Plan - Current Problems (Diagnosis) (1) Bacteremia Current Visit: Yes Status: Acute Plan: MRSa bactermia/patient is on vancomycin white count is declining (2) Respiratory failure Current Visit: Yes Status: Acute Plan: Patient is patient is not doing well severe bilateral pneumonia/now anemic hemoglobin now anemic hemoglobin 7.0/patient has respiratory patient has respiratory alkalosis patient is tolerating tube feeds severe hypokalemia start p.o. potassium replacement/patient developed A. fib patient is on amiodarone Qualifiers: Chronicity: acute
[2021-12-07] MEDS: POTASSIUM 25 MEQ EFFERV TAB PO SCH ×2 (12:25→20:38)
[2021-12-07 17:13] LABS: Magnesium 1.3
[2021-12-07 17:40] LABS: Absolute Lymphocytes (CBC) 1.9 K/uL (0.7-4.9); Hematocrit 25.3 % (36.0-45.0); Lymphocytes % 6.6 % (15.3-44.8); MPV 9.6 fL (7.6-11.3); RBC Red Blood Cell Count 2.66 M/uL (3.86-4.86)
[2021-12-07 17:49] LABS: Phosphorus 1.2 mg/dL (2.5-4.9); Potassium 4.3 mmol/L (3.5-5.1)
[2021-12-07] MEDS ORDERED: Magnesium Sulfate 2gm IVPB 2 G/50 ML BAG IV ONE (18:00)
[2021-12-07] MEDS ORDERED: POTASSIUM PHOS IN 0.9 % NACL 15 MMOL/250 ML BAG IV ONE (18:54)
[2021-12-07] MEDS: AMIODARONE HCL 200 MG TAB PO SCH (20:37)
[2021-12-07 21:13] LABS: Blood Morphology Comment NOT SEEN (NOT SEEN); Platelet Estimate ADEQ
[2021-12-07] MEDS: VANCOMYCIN 1.25 GM in NA CHLORIDE 0.9% 250 ML IVPB SCH (22:56)
[2021-12-08] MEDS: propofoL 1,000 MG/100 ML VIAL IV PRN ×3 (04:05→18:06)
[2021-12-08 05:32] LABS: Absolute Lymphocytes (CBC) 1.5 K/uL (0.7-4.9); Hematocrit 22.1 % (36.0-45.0); Lymphocytes % 6.1 % (15.3-44.8); MPV 9.7 fL (7.6-11.3); RBC Red Blood Cell Count 2.41 M/uL (3.86-4.86)
[2021-12-08 06:09] LABS: ALT/SGPT 32 U/L (12-78); AST/SGOT 72 U/L (15-37); Albumin 1.6 g/dL (3.4-5.0); Alkaline Phosphatase 332 U/L (45-117); BUN Blood Urea Nitrogen 24 mg/dL (7-18); Bicarbonate 22 mmol/L (21-32); Bilirubin Direct 0.8 mg/dL (0-0.2); Bilirubin Total 1.2 mg/dL (0.2-1.0); Glucose Level 118 mg/dL (74-106); NT PRO-BNP 31929 pg/mL (<450); Potassium 4.5 mmol/L (3.5-5.1); Protein, Total 4.9 g/dL (6.4-8.2); Sodium Level 139 mmol/L (136-145)
[2021-12-08] MEDS: POTASSIUM 25 MEQ EFFERV TAB PO SCH ×2 (08:20→20:18)
[2021-12-08] MEDS: AMIODARONE HCL 200 MG TAB PO SCH ×2 (08:21→20:18)
[2021-12-08] MEDS: PARoxetine HCL 10 MG TAB PO SCH (08:22)
[2021-12-08] MEDS: FERROUS SULFATE 325 MG TAB PO SCH (08:22)
[2021-12-08] MEDS: FOLIC ACID 1 MG in NA CHLORIDE 0.9% 50 ML IV SCH (08:23)
[2021-12-08] MEDS: ENOXAPARIN 40 MG/0.4 ML SQ SCH (08:23)
[2021-12-08] MEDS: THIAMINE 200 MG/2 ML INJ IVP SCH ×2 (08:24→20:18)
[2021-12-08] MEDS: PANTOPRAZOLE 40 MG INJ IVP SCH (08:24)
[2021-12-08] MEDS: CEFTRIAXONE 1,000 MG in NA CHLORIDE 0.9% 50 ML IVPB SCH (08:24)
--- NOTE | 2021-12-08 09:54 | RAD REPORT ---
EXAM DESCRIPTION: RAD - Chest Single View - 12/08/2021 7:58 am CLINICAL HISTORY: Resp failure Chest pain. COMPARISON: Chest Single View dated 12/07/2021; Chest Single View dated 12/06/2021; Chest Single View d ated 12/05/2021; Chest Single View dated 12/05/2021 FINDINGS: Portable technique limits examination quality. Endotracheal tube tip is at the superior margin of the aortic arch. Enteric tube descends into the up per abdomen. Moderate bilateral pulmonary opacities are present, similar to comparative study.The hea rt is normal in size. IMPRESSION: Stable examination since yesterday.
--- NOTE | 2021-12-08 11:14 | P.PN ---
Subjective Date of Service: 12/08/21 Primary Care Provider: long term doctor Chief Complaint: Respiratory failure patient intubated Patient's condition is stable FiO2 down to 40% unresponsive Review of Systems is unable to be obtained Physical Examination - Vital Signs Temperature: 96.9 F Blood Pressure: 106/59 Pulse: 91 Respirations: 32 Pulse Ox (%): 96 - Physical Exam General: Unresponsive Respiratory: Clear to auscultation bilaterally, Diminished Cardiovascular: No edema, Regular rate/rhythm - Studies Medications List Reviewed: Yes Assessment And Plan - Current Problems (Diagnosis) (1) Bacteremia Current Visit: Yes Status: Acute Plan: MRSa bactermia/patient is on vancomycin white count is declining (2) Respiratory failure Current Visit: Yes Status: Acute Plan: Patient has got diffuse lung injury I suspect from coronavirus pneumonia currently on FiO2 of 40% blood pressure stable anemic patient has been transfused discussed with daughter at length continue with present treatment prognosis poor Qualifiers: Chronicity: acute Physician Review Additional Text: Assessment Patient is a 76-year-old female [facility] resident, bedbound at baseline. She has a history of hypertension and inclusion body myositis. She was admitted for evaluation of fever and worsening mental status. She tested positive for COVID-19 a few days before her admission. She was maintaining good oxygen saturation on room air but unfortunately progressed rapidly on 12/01 when she developed respiratory failure. She is currently on HFNC with FiO2 of 100%. Acute hypoxemic respiratory failure Septic shock Multi-focal PNA and COVID-19 pneumonia Staph epi bacteremia - TTE w/o signs of vegetations Acute metabolic encephalopathy Acute systolic CHF- LVEF of 35 to 40% UTI Hypokalemia Generalized weakness Inclusion body myositis Hypertension Plan Continue HFNC and wean down as tolerated Continue levophed Vancomycin for persistent staph epi bacteremia. Cefepime to cover E coli UTI Follow Repeat blood cultures Continue systemic steroids VTE and GI ppx on board Add IV PRN labetalol for uncontrolled BP We're currently w/o enteral access. Failed x NGT placement. Hiatal hernia. ? RD will consider TPN
[2021-12-08] MEDS ORDERED: NA CHLORIDE 0.9% 250 ML ONE (11:33)
[2021-12-08] MEDS ORDERED: FUROSEMIDE 20 MG/ 2ML VIAL IV ONE ×2 (15:00→17:00)
[2021-12-08 16:21] LABS: Arterial Blood Carboxyhemoglob 0.8 % (0-1.5); Blood Gas Oxyhemoglobin 97.2 % (94-97); Blood O2 Saturation 99.1 % (92-98.5)
[2021-12-08] MEDS ORDERED: VITAL AF 1,000 ML BOT RTH SCH ×2 (19:00)
[2021-12-08] MEDS ORDERED: Magnesium Sulfate 2gm IVPB 2 G/50 ML BAG IV ONE (19:10)
[2021-12-08] MEDS: FENTANYL CITR 100 MCG/2 ML IV PRN (20:17)
--- NOTE | 2021-12-08 20:24 | P.PN ---
Date of Service: 12/08/21 Subjective Updated the patient's daughter on patient requiring blood transfusion. Prognosis is poor. Continue on mechanical ventilation support. Significant infiltrates on the chest x-ray. Prognosis is very poor. Family wanting to continue with full code. Continue with current plan of care at this time. Review of Systems 10-point ROS is otherwise unremarkable Physical Examination - Vital Signs Reviewed - Physical Exam General: Intubated and sedated HEENT: Intubated and sedated; dobhoff Neck: Supple, JVD not distended Respiratory: Basilar crackles and rhonchi Cardiovascular: irr, irreg Gastrointestinal: Normal bowel sounds, No tenderness Musculoskeletal: No tenderness Integumentary: No rashes Neurological: sedated Assessment & Plan - Problems (Diagnosis) (1) Bilateral pneumonia Current Visit: Yes Status: Acute (2) COVID-19 virus infection Current Visit: Yes Status: Acute (3) Systolic congestive heart failure/atrial fibrillation with rapid ventricular response Current Visit: Yes Status: Acute Qualifiers: Heart failure chronicity: acute Qualified Code(s): I50.21 - Acute systolic (congestive) heart failure (4) Bacteremia Current Visit: Yes Status: Acute (5) Hypertension Onset Date: 10/25/16 Current Visit: No Status: Acute (6) Weakness Onset Date: 11/01/14 Current Visit: No Status: Acute (7) Staphylococcus epidermidis bacteremia Current Visit: Yes Status: Acute (8) Staphylococcus aureus bacteremia Current Visit: Yes Status: Acute - Plan Continue with plan of care as mentioned below: 1. Continue with IV antibiotics; Blood cultures positive for staph aureus and staph epidermidis; procalcitonin elevated 2. Change to amiodarone through dobhoff 3. Mechanical ventilation management per pulmonary; repeat chest x-ray 4. Prognosis is poor but at this time family wants everything done 5. Pulmonary consultation obtained and they are monitoring mechanical ventilation 6. Continue with nebs as needed 7. O2 per protocol per pulmonary 8. Hep-Lock IV; Dobbhoff placement for tube feedings completed 9. Transfusing 2 units of packed red blood cells 10. GI and DVT prophylaxis Discharge Plan: Home Plan to discharge in: Greater than 2 days - Advance Directives Does patient have a Living Will: No Does patient have a Durable POA for Healthcare: No - Code Status/Comfort Care Code Status Assessed: Yes Code Status: Full Code Critical Care: No Time Spent Managing PTS Care (In Minutes): 35
[2021-12-08] MEDS: VANCOMYCIN 1.25 GM in NA CHLORIDE 0.9% 250 ML IVPB SCH (22:52)
[2021-12-09] MEDS: propofoL 1,000 MG/100 ML VIAL IV PRN ×4 (01:18→19:36)
[2021-12-09] MEDS: FENTANYL CITR 100 MCG/2 ML IV PRN ×2 (05:15→20:38)
[2021-12-09 05:41] LABS: Arterial Blood Carboxyhemoglob 1.4 % (0-1.5); Blood Gas Oxyhemoglobin 92.6 % (94-97); Blood O2 Saturation 95.2 % (92-98.5)
[2021-12-09 06:44] LABS: Absolute Lymphocytes (CBC) 1.2 K/uL (0.7-4.9); Hematocrit 27.9 % (36.0-45.0); Lymphocytes % 4.8 % (15.3-44.8); MPV 9.7 fL (7.6-11.3); RBC Red Blood Cell Count 3.02 M/uL (3.86-4.86)
[2021-12-09 07:11] LABS: Albumin 1.3 g/dL (3.4-5.0); Bilirubin Direct 0.7 mg/dL (0-0.2)
[2021-12-09 07:14] LABS: ALT/SGPT 38 U/L (12-78); AST/SGOT 90 U/L (15-37); Albumin 1.3 g/dL (3.4-5.0); Alkaline Phosphatase 435 U/L (45-117); BUN Blood Urea Nitrogen 21 mg/dL (7-18); Bicarbonate 24 mmol/L (21-32); Glucose Level 131 mg/dL (74-106); NT PRO-BNP 26031 pg/mL (<450); Potassium 3.5 mmol/L (3.5-5.1); Sodium Level 139 mmol/L (136-145)
--- NOTE | 2021-12-09 07:28 | RAD REPORT ---
EXAM DESCRIPTION: RAD - Chest Single View - 12/09/2021 6:52 am CLINICAL HISTORY: pneumonia COMPARISON: Chest Single View dated 12/08/2021; Chest Single View dated 12/07/2021; Chest Single View dated 12/06/2021; Chest Single View dated 12/05/2021 FINDINGS: Lines: Endotracheal tube at the aortic arch. Feeding tube below the diaphragm. Lungs: Severe widespread bilateral airspace disease without significant change compared with 12/08/19. Pleural: No significant pleural effusions or pneumothorax. Cardiac: The heart size is within normal limits. Bones: No acute fractures. Other: IMPRESSION: Severe bilateral airspace disease is unchanged. Support apparatus is unchanged.
[2021-12-09] MEDS ORDERED: NA CHLORIDE 0.9% 50 ML ONE (08:18)
[2021-12-09] MEDS: PANTOPRAZOLE 40 MG INJ IVP SCH (08:23)
[2021-12-09] MEDS: POTASSIUM 25 MEQ EFFERV TAB PO SCH ×2 (08:24→20:19)
[2021-12-09] MEDS: FOLIC ACID 1 MG in NA CHLORIDE 0.9% 50 ML IV SCH (08:24)
[2021-12-09] MEDS: ENOXAPARIN 40 MG/0.4 ML SQ SCH (08:24)
[2021-12-09] MEDS: AMIODARONE HCL 200 MG TAB PO SCH ×2 (08:25→20:19)
[2021-12-09] MEDS: THIAMINE 200 MG/2 ML INJ IVP SCH ×2 (08:25→20:20)
[2021-12-09] MEDS: FERROUS SULFATE 325 MG TAB PO SCH (08:25)
[2021-12-09] MEDS: PARoxetine HCL 10 MG TAB PO SCH (08:25)
[2021-12-09] MEDS: CEFTRIAXONE 1,000 MG in NA CHLORIDE 0.9% 50 ML IVPB SCH (08:26)
[2021-12-09 08:32] LABS: Blood Morphology Comment NOT SEEN (NOT SEEN); Platelet Estimate ADEQ; Toxic Granulation PRESENT
[2021-12-09 21:03] VITALS: O2SAT 94
--- NOTE | 2021-12-09 22:39 | P.PN ---
Date of Service: 12/09/21 Subjective Most likely will withdraw care in AM; spoke with daughter and [id number]. they will proceed with DNAR, and they will proceed with withdrawal with office services representative arrival tomorrow between 12-2p. Review of Systems 10-point ROS is otherwise unremarkable Physical Examination - Vital Signs Reviewed - Physical Exam General: Intubated and sedated HEENT: Intubated and sedated Neck: Supple, JVD not distended Respiratory: Basilar crackles and rhonchi Cardiovascular: irr, irreg Gastrointestinal: Normal bowel sounds, No tenderness Musculoskeletal: No tenderness Integumentary: No rashes Neurological: sedated and intubated Assessment & Plan - Problems (Diagnosis) (1) Bilateral pneumonia with acute hypoxic respiratory failure Current Visit: Yes Status: Acute (2) COVID-19 virus infection Current Visit: Yes Status: Acute (3) Systolic congestive heart failure/atrial fibrillation with rapid ventricular response Current Visit: Yes Status: Acute Qualifiers: Heart failure chronicity: acute Qualified Code(s): I50.21 - Acute systolic (congestive) heart failure (4) Bacteremia Current Visit: Yes Status: Acute (5) Hypertension Onset Date: 10/25/16 Current Visit: No Status: Acute (6) Weakness Onset Date: 11/01/14 Current Visit: No Status: Acute (7) Staphylococcus epidermidis bacteremia Current Visit: Yes Status: Acute (8) Staphylococcus aureus bacteremia Current Visit: Yes Status: Acute - Plan Continue with plan of care as mentioned below: 1. Continue with IV antibiotics; Blood cultures positive for staph aureus and staph epidermidis; procalcitonin elevated 2. Change to NGT amiodarone 3. Mechanical ventilation management per pulmonary; repeat chest x-ray 4. Prognosis is poor; family stated DNR; withdrawal of care in the AM 5. Pulmonary consultation obtained and they are monitoring mechanical ventilation 6. Continue with nebs as needed 7. O2 per protocol per pulmonary 8. Hep-Lock IV; Dobbhoff placement for tube feedings 9. Transfused 2 units of packed red blood cells; H&H stable 10. GI and DVT prophylaxis Discharge Plan: Home Plan to discharge in: Greater than 2 days - Advance Directives Does patient have a Living Will: No Does patient have a Durable POA for Healthcare: No - Code Status/Comfort Care Code Status Assessed: Yes Code Status: DNAR Critical Care: yes Time Spent Managing PTS Care (In Minutes): 35
[2021-12-10] MEDS: propofoL 1,000 MG/100 ML VIAL IV PRN ×2 (00:39→11:21)
[2021-12-10] MEDS ORDERED: VANCOMYCIN 1 GM in NA CHLORIDE 0.9% 250 ML IVPB SCH (01:00)
[2021-12-10] MEDS: FENTANYL CITR 100 MCG/2 ML IV PRN (02:35)
[2021-12-10 04:46] VITALS: BMI 28.3
[2021-12-10 05:47] LABS: Absolute Lymphocytes (CBC) 1.4 K/uL (0.7-4.9); Hematocrit 29.9 % (36.0-45.0); Lymphocytes % 5.7 % (15.3-44.8); MPV 9.5 fL (7.6-11.3); RBC Red Blood Cell Count 3.39 M/uL (3.86-4.86)
[2021-12-10 06:13] LABS: BUN Blood Urea Nitrogen 20 mg/dL (7-18); Bicarbonate 27 mmol/L (21-32); Glucose Level 132 mg/dL (74-106); Magnesium 1.9 mg/dL (1.8-2.4); NT PRO-BNP 27206 pg/mL (<450); Potassium 4.3 mmol/L (3.5-5.1); Sodium Level 139 mmol/L (136-145)
[2021-12-10 06:16] LABS: Albumin 1.3 g/dL (3.4-5.0); Bilirubin Direct 0.7 mg/dL (0-0.2); Bilirubin Total 0.9 mg/dL (0.2-1.0); Protein, Total 5.8 g/dL (6.4-8.2)
[2021-12-10] MEDS: CEFTRIAXONE 1,000 MG in NA CHLORIDE 0.9% 50 ML IVPB SCH (08:21)
[2021-12-10] MEDS: POTASSIUM 25 MEQ EFFERV TAB PO SCH (08:22)
[2021-12-10] MEDS: PANTOPRAZOLE 40 MG INJ IVP SCH (08:22)
[2021-12-10] MEDS: PARoxetine HCL 10 MG TAB PO SCH (08:23)
[2021-12-10] MEDS: ENOXAPARIN 40 MG/0.4 ML SQ SCH (08:23)
[2021-12-10] MEDS: THIAMINE 200 MG/2 ML INJ IVP SCH (08:23)
[2021-12-10] MEDS: FERROUS SULFATE 325 MG TAB PO SCH (08:23)
[2021-12-10] MEDS: AMIODARONE HCL 200 MG TAB PO SCH (08:23)
[2021-12-10] MEDS: FOLIC ACID 1 MG in NA CHLORIDE 0.9% 50 ML IV SCH (09:03)
--- NOTE | 2021-12-10 09:27 | P.PN ---
Subjective Date of Service: 12/10/21 Primary Care Provider: snf doctor Chief Complaint: Respiratory failure patient intubated No change unresponsive patient is now DNR family planning to do terminal wean Review of Systems is unable to be obtained Physical Examination - Vital Signs Temperature: 99.1 F Blood Pressure: 126/60 Pulse: 85 Respirations: 20 Pulse Ox (%): 95 - Physical Exam General: Unresponsive Respiratory: Crackles/rales Gastrointestinal: Normal bowel sounds, Soft and benign - Studies Medications List Reviewed: Yes Assessment And Plan - Current Problems (Diagnosis) (1) Bacteremia Current Visit: Yes Status: Acute Plan: MRSa bactermia/patient is on vancomycin white count is declining (2) Respiratory failure Current Visit: Yes Status: Acute Plan: Patient has severe ARDS prognosis is very poor baseline function is also poor chest x-ray still shows diffuse pneumonia right worse than the left white count still elevated labs chemistries all reviewed family planning to do a terminal wean today Qualifiers: Chronicity: acute
[2021-12-10 15:37] VITALS: BP 146/98; TEMP 97.4
--- NOTE | 2021-12-11 05:32 | P.DS ---
Discharge Date: 12/10/21 Primary Care Provider: alf doctor Disposition: Reason for Admission: Respiratory failure patient intubated - Problems (1) Bilateral pneumonia Status: Acute (2) COVID-19 virus infection Status: Acute (3) Systolic congestive heart failure Status: Acute Qualifiers: Heart failure chronicity: acute Qualified Code(s): I50.21 - Acute systolic (congestive) heart failure (4) Bacteremia Status: Acute (5) Hypertension Onset Date: 10/25/16 Status: Acute (6) Weakness Onset Date: 11/01/14 Status: Acute (7) Staphylococcus epidermidis bacteremia Status: Acute (8) Staphylococcus aureus bacteremia Status: Acute Brief History of Present Illness: 76-year-old female who [facility] with [facility] of hypertension and inclusion body myositis presents emergency department for worsening mentation, fever. Patient was evaluated in the emergency department labs were significant for white blood cell count 13.7 with left shift sodium 130 potassium 2.4 chloride 93 glucose 183 urinalysis with 20-50 bacteria 5-10 white blood cell nitrite positive COVID positive. Patient tested positive for Covid on 11/23/2021. Patient saturating around 90% on room air currently on 2 L per nasal cannula saturating around 93 to 95%. CRP level pending. ED provider wishes to admit for UTI, hypokalemia, COVID-19 pneumonia. Chest x-ray demonstrated mild bilateral interstitial lung opacities. Hospital Course: Patient required intubation. Patient's respiratory status continued to worsen. Patient's family did not want see her suffer any longer. The family decided to withdraw care. The molecular biologist came and prayed for the patient. Respiratory therapy came up to withdraw care. Patient slowly after withdrawal of care. Patient at 2:28 p.m.. Home Medications: Docusate Sodium 100 mg PO PRN 06/11/19 Estrogens,Conj [Premarin*] 0.3 mg PO DAILY 06/11/19 Metoclopramide HCl [Reglan] 10 mg PO DAILY 06/11/19 PARoxetine HCL [Paroxetine HCl] 20 mg PO DAILY 06/11/19 Ranitidine [Zantac*] 150 mg PO PRN PRN 06/11/19 Sennosides/Docusate Sodium [Senna-S Tablet] 50 mg PO PRN PRN 06/11/19 Sulfamethoxazole/Trimethoprim [Bactrim 400-80 mg Tablet] 1 tab PO DAILY 06/11/19 Amlodipine Besylate 10 mg PO DAILY #30 tablet 06/12/19 Esomeprazole Mag Trihydrate [Nexium] 40 mg PO DAILY #30 capsule. 06/12/19 Ferrous Sulfate 325 mg PO DAILY 06/16/19 Valsartan [Diovan] 320 mg PO DAILY 06/16/19 Esomeprazole Mag Trihydrate [Nexium] 40 mg PO DAILY #30 capsule. 06/17/19 Physician Discharge Instructions: Okay to release body to home. Followup: NONE,NONE [Primary Care Provider] - Time spent managing pt's care (in minutes): 35
--- NOTE | 2021-12-11 13:07 | CON ---
Date of Consultation: 12/06/2021 Admitted on 11/28/[address] Leon and Dr. Bagley. I saw the patient on 12/06/2021. Reason For Consultation: Atrial fibrillation with rapid ventricular response and elevated troponin. History Of Present Illness: Ms. Lorenzana is 76, has history of anxiety, hypertension, inclusion body myositis, muscular degeneration, ulcers, admitted initially to Dr. Fontanez because of altered mental st atus, UTI, hypoxia, COVID Pneumonia requiring intubation, went into atrial fibrillation with rapid ve ntricular response and I was consulted. No cardiac symptoms reported. Allergies: INCLUDE BACTRIM, LEVAQUIN, AND PENICILLIN WELL SULFA. Review of Systems: Unobtainable. Social History: Unobtainable. Family History: Unobtainable. Medications: At home include amlodipine, Nexium, Premarin, iron, Bactrim, and valsartan. She is pre sently now on Diprivan, Lovenox, Protonix, and antibiotics including vancomycin and Rocephin. Physical Examination: Vital Signs: When I saw her on 12/05/2021, her vital signs were stable. She was intubated, remains hypoxic, rapid atrial fibrillation at 130. HEENT: Negative. Neck: Supple. No bruits. Chest: Reveals crackles throughout. Cardiac: Revealed atrial fibrillation. Abdomen: Benign. Extremities: Revealed trace edema. Diagnostic Data: Consistent with elevated white count, low creatinine, and hemoglobin was 9.7. Her BNP was 26,000. Impression And Plan: This is a very sick patient with COVID, urinary tract infection, hypoxia. I ex pect elevated troponin. I expect elevated BNP, atrial fibrillation, and certainly not surprising in that setting, but she is really only a candidate for IV amiodarone for this at this point. Ejection fraction is 40% to 45%. She should tolerate IV amiodarone fairly well. She does have anteroapical a kinesis consistent with old coronary artery disease. These issues can be readdressed down the road a s Ms. Lorenzana makes it out of ICU for now. IV amiodarone for rate control. IV digoxin may help on h er an as needed basis. I will continue to follow her p.r.n. NB/MODL Voice ID: [id number] Report ID: [id number]
== END 2021-12-10 14:28 | disposition expired | DRG 870 ==
LOC: ER 15:56 → ERHOLD 19:16 → 4TH 21:53 → 3RD-ICU 12-01 22:45
PROVIDERS: ADMIT Internal Medicine; ATTEND Internal Medicine
PROC: 06HY33Z Insertion of Infusion Device into Lower Vein, Percutaneous Approach (ICD-10-PCS; 2021-12-02)
PROC: 5A09457 Assistance with Respiratory Ventilation, 24-96 Consecutive Hours, Continuous Positive Airway Pressure (ICD-10-PCS; 2021-12-03)
PROC: 0BH17EZ Insertion of Endotracheal Airway into Trachea, Via Natural or Artificial Opening (ICD-10-PCS; 2021-12-05)
PROC: 0DHA8UZ Insertion of Feeding Device into Jejunum, Via Natural or Artificial Opening Endoscopic (ICD-10-PCS; 2021-12-05)
PROC: 5A1955Z Respiratory Ventilation, Greater than 96 Consecutive Hours (ICD-10-PCS; principal; 2021-12-05 11:00)
DX: A41.02 Sepsis due to Methicillin resistant Staphylococcus aureus (principal); U07.1 COVID-19; J12.82 Pneumonia due to coronavirus disease 2019; R65.21 Severe sepsis with septic shock; J96.01 Acute respiratory failure with hypoxia; G93.41 Metabolic encephalopathy; I50.21 Acute systolic (congestive) heart failure; J18.8 Other pneumonia, unspecified organism; J80 Acute respiratory distress syndrome; N39.0 Urinary tract infection, site not specified; E87.1 Hypo-osmolality and hyponatremia; E87.3 Alkalosis; E44.0 Moderate protein-calorie malnutrition; A41.1 Sepsis due to other specified staphylococcus; E87.6 Hypokalemia; B96.20 Unspecified Escherichia coli [E. coli] as the cause of diseases classified elsewhere; G72.41 Inclusion body myositis [IBM]; I10 Essential (primary) hypertension; I11.0 Hypertensive heart disease with heart failure; I48.91 Unspecified atrial fibrillation; Z74.01 Bed confinement status; Z66 Do not resuscitate; Z68.28 Body mass index [BMI] 28.0-28.9, adult; K29.40 Chronic atrophic gastritis without bleeding; K44.9 Diaphragmatic hernia without obstruction or gangrene
CPT/HCPCS: 0240U; 36415; 36430; 71045; 74018; 80048; 80053; 80061; 80076; 80202; 81003; 81015; 82248; 82607; 82746; 82805; 82947; 83540; 83605; 83735; 83880; 84100; 84132; 84145; 84439; 84443; 84484; 85025; 85044; 85379; 85610; 85730; 86140; 86850; 86900; 86901; 87040; 87070; 87077; 87086; 87088; 87186; 87205; 92610; 93005; 93306; 94002; 94003; 94660; 94760; 99285; C9113; J0153; J0282; J0360; J0456; J0692; J1644; J1650; J1940; J2270; J2405; J2704; J2920; J2930; J3010; J3370; J3411; J3475; J3480; J7030; J7040; J7050; J7060; J7120; P9016; P9047